=== PATIENT | male | born 1935 | race Caucasian/White ===

== ENCOUNTER 2020-01-26 15:45 | Outpatient (REF) | payer SELFPAY | END 2020-01-26 15:46 | disposition home or self-care (01) | LOC: HO.HAP 15:45 | PROVIDERS: PCP Family Medicine; Referring Provider Family Medicine; Visit Provider Family Medicine | DX: Z13.89 Encounter for screening for other disorder (principal) | CPT/HCPCS: 92700 ==

== ENCOUNTER 2020-02-23 13:58 | Outpatient (REF) | payer SELFPAY | END 2020-02-23 13:59 | disposition home or self-care (01) | LOC: HO.HAP 13:58 | PROVIDERS: PCP Family Medicine; Referring Provider Family Medicine; Visit Provider Family Medicine | DX: Z46.1 Encounter for fitting and adjustment of hearing aid (principal); H90.3 Sensorineural hearing loss, bilateral | CPT/HCPCS: V5266 ==

== ENCOUNTER 2020-03-13 14:04 | Outpatient (REF) | payer SELFPAY | END 2020-03-13 14:05 | disposition home or self-care (01) | LOC: HO.HAP 14:04 | PROVIDERS: Visit Provider Family Medicine | DX: Z46.1 Encounter for fitting and adjustment of hearing aid (principal) | CPT/HCPCS: V5255 ==

== ENCOUNTER 2020-03-28 15:03 | Outpatient (REF) | payer SELFPAY | END 2020-03-28 15:04 | disposition home or self-care (01) | LOC: HO.HAP 15:03 | PROVIDERS: Visit Provider Family Medicine | DX: Z13.89 Encounter for screening for other disorder (principal) ==

== ENCOUNTER 2020-04-11 15:09 | Outpatient (REF) | payer SELFPAY | END 2020-04-11 15:10 | disposition home or self-care (01) | LOC: HO.HAP 15:09 | PROVIDERS: Visit Provider Family Medicine | DX: Z46.1 Encounter for fitting and adjustment of hearing aid (principal); H90.3 Sensorineural hearing loss, bilateral | CPT/HCPCS: V5267 ==

== ENCOUNTER 2020-04-18 13:27 | Outpatient (REF) | payer SELFPAY | END 2020-04-18 13:28 | disposition home or self-care (01) | LOC: HO.HAP 13:27 | PROVIDERS: Visit Provider Family Medicine | DX: Z46.1 Encounter for fitting and adjustment of hearing aid (principal); H90.3 Sensorineural hearing loss, bilateral | CPT/HCPCS: V5266; V5267 ==

== ENCOUNTER 2020-05-09 16:53 | Outpatient (REF) | payer SELFPAY | END 2020-05-09 16:54 | disposition home or self-care (01) | LOC: HO.HAP 16:53 | PROVIDERS: Visit Provider Family Medicine | DX: Z46.1 Encounter for fitting and adjustment of hearing aid (principal) | CPT/HCPCS: V5267 ==

== ENCOUNTER 2020-07-23 14:01 | Outpatient (REF) | payer MEDICARE, OTHER, SELFPAY ==
--- NOTE | 2020-07-23 15:12 | MHC.AU.AHA ---
Adult Audiological Evaluation Date of Visit: 07/23/20 Reason for Appointment: Audiological evaluation to monitor the status of Mr. Allen's hearing loss. He has a longstanding history of hearing loss and hearing aid use. He denies any significant changes to his hearing or medical history. 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 Ear History: Recent Ear Infections: Both Ears Previous Ear Surgery: PE tube in left ear Medical History: Medical History: Unremarkable Medical History Hearing Instrument History- Right Ear: Yard Driver: Phonak Model: Phonak Jaschao M70-10 NW Serial Number: [id number] Battery Size: 10 Repair Warranty: 04/02/2023 Loss and Damage Warranty: 04/02/2023 Dispensed By: [facility] Date of Fittin03/13/2020 Hearing Instrument History- Left Ear: Yard Driver: Phonak Model: [employer] B70-SP Serial Number: [id number] Battery Size: 13 Warranty: 04/07/2020 Loss and Damage Warranty: Dispensed By: [facility] Date of Fittin01/14/2017 Otoscopy: Right Ear: Unremarkable Left Ear: PE tube visualized and appears to be in-tact Tympanometry: Tympanometry performed due to: History of middle ear dysfunction Right Ear: Negative Middle Ear Pressure (Type C), Hypercompliant Middle Ear System (Type Ad) Left Ear: Non-compliant Middle Ear System (Type B), Patent PE Tube Hearing Evaluation: Transducer(s) Used: Insert Earphones, Bone Conduction Method: Conventional Audiometry Stimuli Used: Pure Tones Right Ear: Description of Hearing: Moderate sloping to profound sensorineural hearing loss from 250-8000 Hz. Left Ear: Description of Hearing: Moderate sloping to profound sensorineural hearing loss from 250-8000 Hz. Speech Recognition Threshold (SRT): Method Used: Monitored Live Voice Stimuli Used: Spondee Words Right Ear: 45 dBHL Left Ear: 50 dBHL Word Discrimination: Method: Recorded Lists Word Lists Used: NU-6 Right Ear: 80% at 80 dBHL Left Ear: 76% at 85 dBHL Comparison: Compared to the most recent evaluation: Thresholds have decreased bilaterally. Word discrimination scores have decreased bilaterally. Recommendations: Audiological re-evaluation in one year. Mr. Allen is interested in purchasing a new hearing aid for the left ear to match the current aid in the right ear. Aid is being ordered and Mr. Allen will be contacted to schedule a hearing aid fitting when all materials arrive. Diagnosis: Primary Diagnosis: H90.3 Bilateral Sensorineural Hearing Loss Secondary Diagnosis: H69.93 Unspecified Eustachian Tube Dysfunction, Bilateral Services Performed: Comprehensive Audiological Evaluation (CPT 50875) Tympanometry (CPT 20710) Signature: Provider: Micheal Bob, CCC-A
--- NOTE | 2020-07-23 16:21 | MHC.AU.MED ---
Medical Clearance for Hearing Instrumentation Date: 07/26/20 Patient Name: Mark Allen Date of : 1935 Referring Provider: Jm Benson MD We have seen your patient on 07/26/20 and have determined that they are a candidate for amplification (See accompanying report). Specifically, they would benefit from: Hearing aid use in both ears There is a statute that addresses Medical Evaluation Requirements prior to fitting a patient with a hearing aid. According to [place] statute 265 CMR:6.03(1), (a) General. Except as provided in 265 CMR 6.03(1)(b), a workers' compensation hearings officer shall not sell a hearing aid unless the prospective user has presented to the workers' compensation hearings officer a written statement signed by a licensed physician that states that the patient's hearing loss has been medically evaluated and the patient may be considered a candidate for a hearing aid. The medical evaluation must have taken place within the preceding six months. Please note: Due to the [place] Statute referenced above, we cannot accept a signature other than that of a licensed physician. MEDICARE NURSE and PA signatures cannot be accepted. I am in agreement with the above recommendation. There is no medical contraindication for hearing instrumentation. Physician Signature Date Physician Name (Printed)
== END 2020-07-23 14:02 | disposition home or self-care (01) ==
LOC: HO.SH 14:01
PROVIDERS: Visit Provider Family Medicine
DX: H90.3 Sensorineural hearing loss, bilateral (principal); H69.93 Unspecified Eustachian tube disorder, bilateral
CPT/HCPCS: 92557; 92567

== ENCOUNTER 2020-07-23 14:59 | Outpatient (REF) | payer SELFPAY | END 2020-07-23 15:00 | disposition home or self-care (01) | LOC: HO.SH 14:59 | PROVIDERS: Visit Provider Family Medicine | DX: Z46.1 Encounter for fitting and adjustment of hearing aid (principal); H90.3 Sensorineural hearing loss, bilateral; H69.93 Unspecified Eustachian tube disorder, bilateral | CPT/HCPCS: 92591 ==

== ENCOUNTER 2020-08-16 10:32 | Outpatient (REF) | payer SELFPAY | END 2020-08-16 10:33 | disposition home or self-care (01) | LOC: HO.HAP 10:32 | PROVIDERS: Visit Provider Family Medicine | DX: Z46.1 Encounter for fitting and adjustment of hearing aid (principal); H90.3 Sensorineural hearing loss, bilateral | CPT/HCPCS: V5255 ==

== ENCOUNTER 2020-11-15 13:55 | Outpatient (REF) | payer SELFPAY | END 2020-11-15 13:56 | disposition home or self-care (01) | LOC: HO.HAP 13:55 | PROVIDERS: Visit Provider Family Medicine | DX: Z46.1 Encounter for fitting and adjustment of hearing aid (principal); H90.3 Sensorineural hearing loss, bilateral | CPT/HCPCS: V5266; V5267 ==

== ENCOUNTER 2020-12-21 12:27 | Outpatient (REF) | payer SELFPAY | END 2020-12-21 12:28 | disposition home or self-care (01) | LOC: HO.HAP 12:27 | PROVIDERS: Visit Provider Family Medicine | DX: Z13.89 Encounter for screening for other disorder (principal) ==

== ENCOUNTER 2021-01-28 13:02 | Outpatient (REF) | payer SELFPAY ==
--- NOTE | 2021-01-28 13:21 | MHC.AU.P13 ---
Hearing Instrument Problem Date of Visit: 01/28/21 Right Ear: Ceiling Insulation Blower: Phonak Model: Phonak Virto M70-10 NW Serial Number: [id number] Repair Warranty: 04/02/2023 Loss and Damage Warranty: 04/02/2023 Service Plan: Battery Size: 10 Color: Fleetwood Type of Wax Guard: Cerustop Dispensed By: [facility] Date of Fittin03/13/2020 Left Ear: Ceiling Insulation Blower: Phonak Model: Virto M70-10 NW Serial Number: [id number] Repair Warranty: 09/06/2023 Loss and Damage Warranty: 09/06/2023 Service Plan: Battery Size: 10 Color: Fleetwood Compounder Flavorings: Power Tubing: size 2 slim tube Type of Dome: large power dome Type of Wax Guard: Cerustop Dispensed By: [facility] Date of Fittin08/16/2020 Follow-Up Summary: Patient brought in right Phonak Virto with broken battery door. Battery door replaced, hearing aid cleaned, and wax guard replaced - amplifying clearly and battery door functioning properly. Recommendations: Recommendations: Hearing instrument follow-up or maintenance as needed. Diagnosis Code(s): Primary Diagnosis: H90.3 Bilateral Sensorineural Hearing Loss Signature: Provider: RENUKA Ventura-HIS
== END 2021-01-28 13:03 | disposition home or self-care (01) ==
LOC: HO.HAP 13:02
PROVIDERS: Visit Provider Family Medicine
DX: Z13.89 Encounter for screening for other disorder (principal)

== ENCOUNTER 2021-02-11 15:23 | Outpatient (REF) | payer SELFPAY | END 2021-02-11 15:24 | disposition home or self-care (01) | LOC: HO.HAP 15:23 | PROVIDERS: Visit Provider Family Medicine | DX: Z46.1 Encounter for fitting and adjustment of hearing aid (principal); H90.3 Sensorineural hearing loss, bilateral | CPT/HCPCS: V5266 ==

== ENCOUNTER 2021-05-14 15:31 | Outpatient (REF) | payer SELFPAY | END 2021-05-14 15:32 | disposition home or self-care (01) | LOC: HO.HAP 15:31 | PROVIDERS: Visit Provider Family Medicine | DX: Z46.1 Encounter for fitting and adjustment of hearing aid (principal) | CPT/HCPCS: V5266 ==

== ENCOUNTER 2021-06-14 13:42 | Outpatient (REF) | payer SELFPAY | END 2021-06-14 13:43 | disposition home or self-care (01) | LOC: HO.HAP 13:42 | PROVIDERS: Visit Provider Family Medicine | DX: Z13.89 Encounter for screening for other disorder (principal) ==

== ENCOUNTER 2021-06-25 13:20 | Outpatient (REF) | payer SELFPAY | END 2021-06-25 13:21 | disposition home or self-care (01) | LOC: HO.HAP 13:20 | PROVIDERS: Visit Provider Family Medicine | DX: Z13.89 Encounter for screening for other disorder (principal) ==

== ENCOUNTER 2021-11-01 12:59 | Outpatient (REF) | payer MEDICARE, OTHER, SELFPAY ==
--- NOTE | 2021-11-14 08:43 | MHC.AU.AHA ---
Adult Audiological Evaluation Date of Visit: 11/01/21 Supervisor Paper Products Used: Not Applicable Reason for Appointment: Audiologic re-evaluation to determine possible change in hearing ability. Mark has a history of bilateral hearing loss with history of middle ear fluid with placement of pressure equalization tubes. Mark reports speech understanding in noisy environments continue to be a problem. Previous Hearing Test Results: 07/23/2020 [facility] Bilateral moderate sloping to profound sensorineural hearing loss with 80% speech understanding for the right ear at 8- dB HL and 76% for the left ear at 85 dB HL. Ear History: History of Ear Wax Buildup: Both Ears Previous Ear Surgery: PE tube in left ear Medical History: Medical History: Unremarkable Medical History Hearing Instrument History- Right Ear: Word Processing Operator: Phonak Model: Vid[employer]o M70-10 NW Serial Number: [id number] Battery Size: 10 Repair Warranty: 04/02/2023 Loss and Damage Warranty: 04/02/2023 Dispensed By: [facility] Date of Fittin03/13/2020 Hearing Instrument History- Left Ear: Word Processing Operator: Phonak Model: trueEXo M70-10 NW Serial Number: [id number] Battery Size: 10 Warranty: 09/06/2023 Loss and Damage Warranty: 09/06/2023 Service Plan: Dispensed By: [facility] Date of Fittin08/16/2020 Otoscopy: Right Ear: Partially occluded with cerumen Left Ear: Mostly occluding cerumen. Unable to visualize PE Tube Tympanometry: Tympanometry performed due to: To assess state of PE tubes Right Ear: Hypercompliant Middle Ear System (Type Ad) Left Ear: Patent PE Tube Hearing Evaluation: Transducer(s) Used: Circumaural Headphones Method: Conventional Audiometry Stimuli Used: Pure Tones Right Ear: Description of Hearing: Moderate sloping to profound sensorineural hearing loss Left Ear: Description of Hearing: Moderate sloping to profound sensorineural hearing loss Speech Recognition Threshold (SRT): Method Used: Recorded Lists Stimuli Used: Spondee Words Right Ear: 40 dB HL Left Ear: 40 dB HL Word Discrimination: Method: Recorded Lists Word Lists Used: NU-6 Right Ear: 92% at 80 dB HL Left Ear: 60% at 80 dB HL Comparison: Compared to the most recent evaluation: Thresholds have decreased bilaterally. Compared to most recent evaluation: The partially to mostly occluding cerumen may be influencing the decreased thresholds and speech understanding difficulties. Recommendations: Follow-up with physician for cerumen removal. Hearing aid maintenance performed today. Unable to re-program hearing aids to today's audiologic results due to equipment problem. Mark will schedule another appointment to program aids following cerumen removal. Audiological re-evaluation in one year. Will send a reminder card. Diagnosis: Primary Diagnosis: H90.3 Bilateral Sensorineural Hearing Loss Secondary Diagnosis: H69.92 Unspecified Eustachian Tube Dysfunction, Left Ear Services Performed: Pure Tone- Air (CPT 23963) Speech Audiometry Threshold, with Speech Recognition (CPT 23014) Tympanometry (CPT 69901) Signature: Provider: Micheal Brown, CCC-A
== END 2021-11-01 13:00 | disposition home or self-care (01) ==
LOC: HO.SH 12:59
PROVIDERS: Visit Provider Family Medicine
DX: Z01.118 Encounter for examination of ears and hearing with other abnormal findings (principal); H90.3 Sensorineural hearing loss, bilateral; H69.92 Unspecified Eustachian tube disorder, left ear
CPT/HCPCS: 92552; 92556; 92567

== ENCOUNTER 2021-11-01 14:00 | Outpatient (REF) | payer SELFPAY | END 2021-11-01 14:01 | disposition home or self-care (01) | LOC: HO.HAP 14:00 | PROVIDERS: Visit Provider Family Medicine | DX: Z46.1 Encounter for fitting and adjustment of hearing aid (principal); H90.3 Sensorineural hearing loss, bilateral | CPT/HCPCS: V5266 ==

== ENCOUNTER 2022-03-21 12:25 | Outpatient (REF) | payer SELFPAY | END 2022-03-21 12:26 | disposition home or self-care (01) | LOC: HO.HAP 12:25 | PROVIDERS: Visit Provider Family Medicine | DX: Z46.1 Encounter for fitting and adjustment of hearing aid (principal); H90.3 Sensorineural hearing loss, bilateral | CPT/HCPCS: V5266; V5267 ==

== ENCOUNTER 2022-12-17 16:22 | Outpatient (REF) | payer SELFPAY | END 2022-12-17 16:23 | disposition home or self-care (01) | LOC: HO.HAP 16:22 | PROVIDERS: Visit Provider Family Medicine | DX: Z46.1 Encounter for fitting and adjustment of hearing aid (principal) | CPT/HCPCS: V5266 ==

== ENCOUNTER 2023-03-24 14:57 | Outpatient (REF) | payer SELFPAY | END 2023-03-24 14:58 | disposition home or self-care (01) | LOC: HO.HAP 14:57 | PROVIDERS: Visit Provider Family Medicine | DX: Z13.89 Encounter for screening for other disorder (principal) ==

== ENCOUNTER 2023-03-25 15:10 | Outpatient (REF) | payer SELFPAY | END 2023-03-25 15:11 | disposition home or self-care (01) | LOC: HO.HAP 15:10 | PROVIDERS: Visit Provider Family Medicine | DX: Z13.89 Encounter for screening for other disorder (principal) ==

== ENCOUNTER 2023-04-01 13:55 | Outpatient (REF) | payer SELFPAY | END 2023-04-01 13:56 | disposition home or self-care (01) | LOC: HO.HAP 13:55 | PROVIDERS: Visit Provider Family Medicine | DX: Z13.89 Encounter for screening for other disorder (principal) ==

== ENCOUNTER 2023-05-15 10:30 | Outpatient (REF) | payer MEDICARE, OTHER, SELFPAY | END 2023-05-15 10:31 | disposition home or self-care (01) | LOC: HO.SH 10:30 | PROVIDERS: Visit Provider Family Medicine | DX: Z01.118 Encounter for examination of ears and hearing with other abnormal findings (principal); H90.3 Sensorineural hearing loss, bilateral | CPT/HCPCS: 92557; 92567 ==

== ENCOUNTER 2023-05-15 11:40 | Outpatient (REF) | payer SELFPAY | END 2023-05-15 11:41 | disposition home or self-care (01) | LOC: HO.HAP 11:40 | PROVIDERS: Visit Provider Family Medicine | DX: Z46.1 Encounter for fitting and adjustment of hearing aid (principal); H90.3 Sensorineural hearing loss, bilateral | CPT/HCPCS: V5266 ==

== ENCOUNTER 2023-05-15 11:49 | Outpatient (REF) | payer SELFPAY ==
--- NOTE | 2023-05-15 13:03 | MHC.AU.HA1 ---
Hearing Aid Evaluation Date of Visit: 05/15/23 Historical Information: Description of Hearing: Moderate sloping to profound sensorineural hearing loss, bilaterally Current personal amplification information: Phonak Virto M70-10 NW CICs Summary: Mark is a long-time hearing aid user and he is reportedly ready to pursue new hearing aids. He would prefer to stay with the same CIC style and size 10 battery. Discussed new custom options including Phonak Virto Ps and Oticon OWNs. Discussed options for bluetooth in bigger sized custom; however, Mark does not know what bluetooth is and has no interest in that technology. Also discussed option of waiting to pursue new hearing aids until Phonak releases custom devices with newer technology, possibly on Lumity platform, as current pair is only three years old . However, Mark would like new hearing aids and opted to trial Oticon custom hearing aids, as OWN is in their newest line of technology. Impressions taken, bilaterally, without incident - Sent to Oticon. Hearing Aid Prescription: Based on the individual?s shared listening needs, communication environments, dexterity, desire for connectivity, and personal preferences, the following prescription for amplification has been made: Right ear: Make, Model, Color: Oticon OWN 2 CICs Color: Beige Battery Size: 10 Left ear: Left ear prescription to be same as Right Hearing Aid above: No: Not purchasing one for the left ear at this time. Make, Model, Color: Oticon OWN 2 CICs Color: Beige Battery Size: 10 Plan of Care: Patient wishes to purchase hearing aids as prescribed Action Taken/Action Needed: Hearing Instrument Fitting to be scheduled when materials arrive Primary Diagnosis: H90.3 Bilateral Sensorineural Hearing Loss Signature: Provider: Ronak Simmons, [facility]
== END 2023-05-15 11:50 | disposition home or self-care (01) ==
LOC: HO.HAP 11:49
PROVIDERS: Visit Provider Family Medicine
DX: Z46.1 Encounter for fitting and adjustment of hearing aid (principal); H90.3 Sensorineural hearing loss, bilateral
CPT/HCPCS: 92590

== ENCOUNTER 2023-05-28 12:50 | Outpatient (REF) | payer SELFPAY | END 2023-05-28 12:51 | disposition home or self-care (01) | LOC: HO.HAP 12:50 | PROVIDERS: Visit Provider Family Medicine | DX: Z13.89 Encounter for screening for other disorder (principal) ==

== ENCOUNTER 2023-06-11 12:56 | Outpatient (REF) | payer SELFPAY | END 2023-06-11 12:57 | disposition home or self-care (01) | LOC: HO.HAP 12:56 | PROVIDERS: Visit Provider Nurse Practitioner Family | DX: Z46.1 Encounter for fitting and adjustment of hearing aid (principal); H90.3 Sensorineural hearing loss, bilateral | CPT/HCPCS: 92700; V5259; V5267 ==

== ENCOUNTER 2023-06-25 13:57 | Outpatient (REF) | payer SELFPAY | END 2023-06-25 13:58 | disposition home or self-care (01) | LOC: HO.HAP 13:57 | PROVIDERS: Visit Provider Family Medicine | DX: Z13.89 Encounter for screening for other disorder (principal) ==

== ENCOUNTER 2023-08-18 15:06 | Outpatient (REF) | payer SELFPAY | END 2023-08-18 15:07 | disposition home or self-care (01) | LOC: HO.HAP 15:06 | PROVIDERS: Visit Provider Family Medicine | DX: Z46.1 Encounter for fitting and adjustment of hearing aid (principal); H90.3 Sensorineural hearing loss, bilateral | CPT/HCPCS: V5266 ==

== ENCOUNTER 2023-10-09 15:42 | Outpatient (REF) | payer SELFPAY | END 2023-10-09 15:43 | disposition home or self-care (01) | LOC: HO.HAP 15:42 | PROVIDERS: Visit Provider Family Medicine | DX: Z46.1 Encounter for fitting and adjustment of hearing aid (principal); H90.3 Sensorineural hearing loss, bilateral; H69.92 Unspecified Eustachian tube disorder, left ear | CPT/HCPCS: V5266 ==

== ENCOUNTER 2023-12-02 15:06 | Outpatient (REF) | payer SELFPAY | END 2023-12-02 15:07 | disposition home or self-care (01) | LOC: HO.HAP 15:06 | PROVIDERS: Visit Provider Family Medicine | DX: Z46.1 Encounter for fitting and adjustment of hearing aid (principal); H90.3 Sensorineural hearing loss, bilateral; H69.92 Unspecified Eustachian tube disorder, left ear | CPT/HCPCS: V5266 ==

== ENCOUNTER 2024-02-02 15:01 | Outpatient (REF) | payer SELFPAY | END 2024-02-02 15:02 | disposition home or self-care (01) | LOC: HO.HAP 15:01 | PROVIDERS: Visit Provider Family Medicine | DX: Z46.1 Encounter for fitting and adjustment of hearing aid (principal); H90.3 Sensorineural hearing loss, bilateral; H69.92 Unspecified Eustachian tube disorder, left ear | CPT/HCPCS: V5266 ==

== ENCOUNTER 2024-04-18 14:31 | Outpatient (REF) | payer SELFPAY ==
--- OUTSIDE RECORDS SUMMARY | 2024-04-18 18:56 | XMS_ITS | Data Portability ---
Author Organization [place] [facility] Address [address] [place] [address] Care Team Providers Care Operations Welder Name Role Phone SIMONE NATH Primary Care Provider Assessment Encounter Date Assessment Date Assessment LastModified by Organization Details LastModified Time 12/07/2023 12/07/2023 Impacted cerumen was debrided bilaterally today. The left t-tube is in place and patent. He will follow up in three months. [email or web address] Not available 12/07/2023 15:43:07 03/07/2024 03/07/2024 Impacted cerumen was debrided bilaterally today. The left t-tube is in place and patent. He will follow up in three months. [email or web address] Not available 03/07/2024 14:08:13 Plan of Treatment Reminders Order Date Submit Date Provider Last Modified By Organization Details Last Modified Time Details Appointments Establish ed 15 2024 02:15P Saad WILL PA-C Not available Not available Not available Lab None recorded. Referral None recorded. Procedures None recorded. Surgeries None recorded. Imaging None recorded. Medication Orders None recorded. Patient TargetsNo targets recorded. Patient InstructionsNo instructions recorded. Reason for Referral None Reported. Results Created Date Observation Date Name Description Value Unit Range Abnormal Flag Note LastModifiedBy Organization Detail LastModifiedTime 11/10/19 24 05/17/2019 audio gram No observ ation record ed. Not Available 20:15:38 11/10/1912/28/2019 imagi ng/di agnos tic resul t No observ ation record ed. Not Available 20:15:46 11/10/19 24 05/17/2019 audio gram No observ ation record ed. Not Available 20:16:13 11/10/19 24 12/28/2019 audio gram No observ ation record ed. Not Available 20:16:32 11/10/19 24 01/19/2020 audio gram No observ ation record ed. Not Available 20:16:50 11/10/19 24 01/31/2020 audio gram No observ ation record ed. Not Available 20:16:52 Result Notes None recorded. Problems Name Problem SNOMED Code Status Onset Date Resolution Date Notes Provider Name and Address Organization Details Recorded Time Disorder of left Eustachia n tube 89353894264 65784 Active 2015 Other specified disorders of Eustachia n tube, left ear; Note: Date Diagnosed : 07/06/2015 2:16 PM (H69.82) Not Available [facility] 4 02:14:49 Chronic mycotic otitis externa 991488458 Active 2015 Chronic mycotic otitis externa; Note: Date Diagnosed : 01/30/2016 1:33 PM (380.15) Not Available [facility] 4 02:14:54 Otorrhea of left ear 53442965281 84913 Active 2018 Otorrhea, left ear; Note: Date Diagnosed : 05/04/2018 1:29 PM (H92.12) Otorrhe a, left ear; Note: Date Diagnosed : 5 1:44 PM (H92.12) ; Start Date : 5 Not Available [facility] 4 02:14:13 Impacted cerumen of bilateral ears 53462599134 87763 Active 2014 Impacted cerumen, bilateral ; Note: Date Diagnosed : 5 2:29 PM (H61.23) Not Available [facility] 4 02:14:40 Dysfuncti on of eustachia n tube 52843577 Active 2013 Eustachia n tube dysfuncti on; Note: Date Diagnosed : 02/24/2014 2:07 PM (381.81) Not Available [facility] 4 02:12:51 Sensorine ural hearing loss of bilateral ears 018130420 Active 2019 Sensorine ural hearing loss, bilateral ; Note: Date Diagnosed : 05/17/2019 1:53 PM (H90.3) Not Available [facility] 4 02:15:19 Mixed conductiv e and sensorine ural hearing loss, bilateral 470180364 Active 2013 Mixed HL, bilateral ; Note: Date Diagnosed : 02/24/2014 1:34 PM (389.22) Not Available [facility] 4 02:15:53 Infective otitis externa of left ear 20897907952 15069 Active 2015 Other infective otitis externa, left ear; Note: Date Diagnosed : 02/27/2016 2:38 PM (H60.392) Not Available [facility] 4 02:14:54 Impacted cerumen in right ear 43308123625 82135 Active 2016 Impacted cerumen, right ear; Note: Date Diagnosed : 10/14/2016 1:43 PM (H61.21) Not Available [facility] 4 02:13:33 Itching of skin 857421410 Active 2022 Other pruritus; Note: Date Diagnosed : 11/11/2022 3:09 PM (L29.8) Not Available [facility] 4 02:14:26 Problem Notes None recorded. Procedures Surgical History None recorded. Imaging Results Imaging Date Name Status LastModified by [facility] Details LastModified Time 05/17/2019 audiogram completed Information not available 11/10/2023 20:15:38 12/28/2019 imaging/diagno stic result completed Information not available 11/10/2023 20:15:46 05/17/2019 audiogram completed Information not available 11/10/2023 20:16:13 12/28/2019 audiogram completed Information not available 11/10/2023 20:16:32 01/19/2020 audiogram completed Information not available 11/10/2023 20:16:50 01/31/2020 audiogram completed Information not available 11/10/2023 20:16:52 Procedure Notes None recorded. Medical Equipment None Reported. Medications Name Sig Start Date Stop Date Status Note LastModified by Organization Details LastModified Time amoxicill in 500 mg capsule TAKE 4 CAPS ONCE ONE HOUR PRIOR TO DENTAL WORK OR CLEANING 03/07 completed Not Available Not Available Not Available ofloxacin 0.3 % eye drops 03/07 completed Medicati on ID: [id number] D uration Value: 10 Prescri bed By Name: BERNIE Grande nd Name: ofloxaci n Send Method: E-Prescr ibed Sub s Allowed: subs OK Speci al Instruct ion: apply 5 drops to left ear BID x 10 days Med icationG enericNa me: ofloxaci n Not Available Not Available Not Available simvastat in 40 mg tablet 07/12 completed Medicati on ID: [id number] Du ration Value: 90 Brand Name: simvasta tin Send Method: E-Prescr ibed Sub s Allowed: subs OK Medic ationGen ericName : simvasta tin Not Available Not Available Not Available pantopraz ole 20 mg tablet,de layed release TAKE 1 TABLET DAILY (REPLACE S ESOMEPRA ZOLE) active Not Available Not Available No t Available ofloxacin 0.3 % ear drops Apply 4 drop into left ear twice a day 03/07 completed Medicati on ID: [id number] D uration Value: 14 Brand Name: ofloxaci n Send Method: E-Prescr ibed Sub s Allowed: subs OK Medic ationGen ericName : ofloxaci n Not Available Not Available Not Available triamcino lone acetonide 0.025 % topical cream 03/07 completed Medicati on ID: [id number] B rand Name: triamcin olone acetonid e Send Method: E-Prescr ibed Sub s Allowed: subs OK Medic ationGen ericName : triamcin olone acetonid e Not Available Not Available Not Available tamsulosi n 0.4 mg capsule 03/07 completed Medicati on ID: [id number] B rand Name: tamsulos in Send Method: E-Prescr ibed Sub s Allowed: subs OK Medic ationGen ericName : tamsulos in Not Available Not Available Not Available flunisoli de 25 mcg (0.025 %) nasal spray 03/07 completed Not Available Not Available Not Available clotrimaz ole-betam ethasone 1 %-0.05 % topical cream PLEASE SEE ATTACHED FOR DETAILED DIRECTIO NS 03/07 completed Not Available Not Available Not Available lansopraz ole 30 mg capsule,d elayed release 03/07 completed Not Available Not Available Not Available lisinopri l 5 mg tablet 07/12 completed Medicati on ID: [id number] D uration Value: 90 Brand Name: lisinopr il Send Method: E-Prescr ibed Sub s Allowed: subs OK Medic ationGen ericName : lisinopr il Not Available Not Available Not Available fluticaso ne propionat e 50 mcg/actua tion nasal spray,[place] USE 1 SPRAY IN EACH NOSTRIL TWICE A DAY active Not Available Not Available No t Available naproxen 500 mg tablet 08/07 completed Medicati on ID: [id number] Du ration Value: 30 Reason: () Brand Name: naproxen Send Method: E-Prescr ibed Sub s Allowed: subs OK Speci al Instruct ion: TAKE 1 TABLET BY MOUTH TWICE A DAY AFTER MEALS Me dication GenericN nakul: naproxen Not Available Not Available Not Available esomepraz ole magnesium 20 mg capsule,d elayed release 03/07 completed Medicati on ID: [id number] B rand Name: esomepra zole magnesiu m Send Method: E-Prescr ibed Sub s Allowed: subs OK Medic ationGen ericName : esomepra zole magnesiu m Not Available Not Available Not Available TobraDex 0.3 %-0.1 % eye drops,[place] 4 drop 03/07 completed Medicati on ID: [id number] D uration Value: 7 Prescri bed By Name: BERNIE Lowe nd Name: TobraDex Send Method: E-Prescr ibed Sub s Allowed: subs OK Speci al Instruct ion: apply to left ear. sit with drops in ear x 5 minutes. no water in ear. Med icationG enericNa me: TobraDex Not Available Not Available Not Available Ciprodex 0.3 %-0.1 % ear drops,[place] 4 drop 03/07 completed Medicati on ID: [id number] D uration Value: 14 Prescri bed By Name: BERNIE Garcia nd Name: Ciprodex Send Method: E-Prescr ibed Sub s Allowed: subs OK Medic ationGen ericName : Ciprodex Not Available Not Available Not Available rosuvasta tin 20 mg tablet TAKE 1 TABLET BY MOUTH EVERY DAY active Not Available Not Available No t Available hydrochlo rothiazid e 12.5 mg tablet 07/08 completed Medicati on ID: [id number] Re ason: () Brand Name: hydrochl orothiaz karon Send Method: E-Prescr ibed Sub s Allowed: subs OK Medic ationGen ericName : hydrochl orothiaz karon Not Available Not Available Not Available Vitals Date Recorded Body height Body mass index (BMI) Body weight Provider Name and Address Organization Details Last Updated DateTime 12/07/2023 172.72 cm 30.1 kg/m2 34553.29 g Hillary Menard [place] [facility] 12/07/2023 13:44:57 Date Recorded Body height Body mass index (BMI) Body weight Provider Name and Address Organization Details Last Updated DateTime 03/07/2024 172.72 cm 30.1 kg/m2 84060.29 g Destiny Bonilla [place] [facility] 03/07/2024 13:38:20 Social History None recorded. Functional Status None recorded. Mental Status None recorded. Family History Nothing Reported. Medical History No medical history recorded. Past Encounters Encounter ID Performer Location Encounter Start Date Encounter Closed Date Diagnosis/Indication Diagnosis SNOMED-CT Code Diagnosis ICD10 Code Diagnosis Note [id number] LAUREN JIMENEZ PA-C [facility] [id number] [place] [address] 12/07/2023 13:35:57 12/07/2023 13:54:32 Disorder of left Eustachian tube 0147764902 531516 H69.82 Impacted c erumen of bilateral ears 3464398945 381486 H61.23 [id number] LAUREN JIMENEZ PA-C [facility] on [address] [place] [address] 03/07/2024 13:32:10 03/07/2024 14:14:39 Disorder of left Eustachian tube 9352752120 647846 H69.82 Impacted c erumen of bilateral ears 9889741693 177105 H61.23 Health Concerns Section Related Observation LastModified by Organization Detai ls LastModified Time None Recorded Concern Status LastModified by Organization Details LastModified Time None Recorded Advance Directives Directive None Recorded Payers Encounter Date Sequence Insurance Name Policy Number Policy Marcos Covered Member ID Marcos Member ID Guarantor Name 12/07/2023 2 [facility] [id number] Mark Allen [id number] Mark Allen 12/07/2023 1 MEDICARE [facility]: NATIONAL [employer]MENT SERVICES Mark Allen [id number] Mark Blanclivan 03/07/2024 2 [facility] [id number] Mark Blanclivan [id number] Mark Blanclivan 03/07/2024 1 MEDIC[place]: [facility] SERVICES Mark Blanclivan [id number] Mark Solorio Allen Notes Date Note Type Note Provider Name and Address Organization Details Recorded Time 12/07/2023 text/html 88 year old male presents today for ear cleaning and tube check. History of left t-tube placed by .No concerns today. He recently underwent an aortic valve replacement and has been doing very well. LAUREN JIMENEZ PA-C [address] [place] [address], [address], [place] - [facility] 12/07/2023 15:43:19 03/07/2024 text/html 88 year old male presents today for ear cleaning and tube check. History of left t-tube placed by .He reports a little itching in the left ear. He has been using OTC hydrocortisone which has been helping. LAUREN JIMENEZ PA-C [address] [place] [address], [place], [address], [facility] - [facility] 03/07/2024 14:08:53
--- OUTSIDE RECORDS SUMMARY | 2024-04-18 18:56 | XMS_ITS | Patient Health Record ---
Author Organization [facility] Address [address] [place] [address] Care Team Providers Care Nursing Resident Name Role Phone Jm Benson MD Primary Care Provider Ana Delaney Unavailable [phone] Dhaval Rosario Unavailable [phone] Loco Monroy Unavailable [phone] Allergies Allergen (clinical drug ingredient) Drug/Non Drug Allergy documented on EMR Reaction Allergy Type Onset Date Status Seasonale Unknown Drug Allergy Active Reason For Referral No Information Medications Medication SIG (Take, Route, Frequency, Duration) Notes Start Date End Date Status Rosuvastatin Calcium 20 MG 1 tablet Oral ly Once a day Active Simvastatin 40 MG 1 tablet in the evening Orally Not-Taking hydroCHLOROthiazide 12.5 MG 1 tablet Orally Not-Taking Tamsulosin HCl 0.4 MG 1 capsule Orally Once a day Not-Taking Esomeprazole Magnesium 20 MG Orally Once a day Not-Taking Baby Aspirin Active AmLactin 12 % 1 application to affected area Externally Twice a day to feet for 30 days Active Fluorouracil twice a day on face Not-Taking Fluticasone Propionate (Inhal) 50 MCG/BLIST Inhalation Active Advil Not-Taking Tobramycin-dexAMETHasone Not-Taking Colcrys 0.6 MG 1 tablet Orally once a day for 30 days for gout 08/06/2020 Not-Taking Antibiotic Temp 10days Not-Ejremy ing Lansoprazole 30 MG 1 capsule before a meal Orally Once a day Not-Taking Lisinopril 5 MG 1 tablet Orally Once a day for 30 day(s) Not-Taking Pantoprazole Sodium 20 MG Oral for 90 Active Lansoprazole 30 MG Orally N ot-Taking Immunizations Vaccine Route Administration Date Status Comme nts COVID-19 Moderna Vaccine Unknown 01/21/2022 Administered 05/01/2020,05/29/2020,2021 Influenza Unknown 12/21/2021 Administered Social History Tobacco Use: Social History Observation Description Date Details (start date - stop date) Former Smoker NA - NA Tobacco Use/Smoking Question Answer Notes Are you a: former smoker Additional Findings: Tobacco Non-User Current no n-smoker Alcohol Screen Question Answer Notes Did you have a drink contain ing alcohol in the past year? Yes How often did you have a dri nk containing alcohol in the past year? 2 to 4 times a month (2 points) Points 2 Interpretation Negative Tobacco use other than smoking: Question Answer Notes Are you an other tobacco user? No Problems Problem Type SNOMED Code ICD Code Onset Dates Problem Status W/U Status Risk Notes Problem Tinea unguium (501563414) Tinea unguium (B35.1) Active confirmed Problem Unspecified atherosclerosis of [place] arteries of extremities, bilateral legs (I70.203) Active confirmed Problem Localized, primary osteoarthritis of the ankle and/or foot (401645386) Primary osteoarthritis, left ankle and foot (M19.072) Active confirmed Problem Acquired hammer toe of right foot (3424773399316232 ) Other hammer toe(s) (acquired), right foot (M20.41) Active confirmed Problem Acquired hammer toe of left foot (7599494431943687 ) Other hammer toe(s) (acquired), left foot (M20.42) Active confirmed Problem Primary gout (31622514) Idiopathic gout, 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) Active confirmed Problem Primary gout (34635197) Idiopathic gout, 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) Active confirmed Problem 683218274 Venous insufficiency of both lower extremities (I87.2) Active confirmed Problem Atherosclerosis of united [place] artery of both lower extremities, with unspecified presence of clinical manifestation (I70.203) Active confirmed Q7(A), Q8(2B), Q9(1B,2 C) Vital Signs Blood pressure diastolic 78 mm Hg 01/27/2024 Height 5 ft 9 in in 01/27/2024 Blood pressure systolic 160 mm Hg 01/27/2024 Weight 180 lbs 01/27/2024 BMI 26.58 kg/m2 01/27/2024 Procedures Procedure Date Ordered Date Performed Result Body Sit e 52360-HQNFGBU NAIL, 6 OR MORE 01/27/2024 N/A 16551-JDOW SKIN LESIONS, 2 TO 4 01/27/2024 N/A Encounters Encounter Location Date Provider Diagnosis [address] [address] 07/02/2023 Dhaval Rosario Tinea unguium B35.1 ; Pain in right toe(s) M79.674 ; Pain in left toe(s) M79.675 ; Plantar fascial fibromatosis M72.2 ; Primary osteoarthritis, left ankle and foot M19.072 ; Unspecified atherosclerosis of [place] arteries of extremities, bilateral legs I70.203 ; Xerosis cutis L85.3 and Idiopathic gout, multiple sites M10.[address] [address] 10/28/2023 Dhaval Rosario Tinea unguium B35.1 ; Pain in right toe(s) M79.674 ; Pain in left toe(s) M79.675 ; Plantar fascial fibromatosis M72.2 ; Primary osteoarthritis, left ankle and foot M19.072 ; Unspecified atherosclerosis of [place] arteries of extremities, bilateral legs I70.203 ; Xerosis cutis L85.3 and Idiopathic gout, multiple sites M10.[address] [address] 01/27/2024 [place] Atherosclerosis of united [place] artery of both lower extremities, with unspecified presence of clinical manifestation I70.203 ; Tinea unguium B35.1 ; Pain in right toe(s) M79.674 and Pain in left toe(s) M79.[address] [address] 07/07/2023 Dhaval Rosario [address] [address] 10/06/2023 Dhaval Rosario Assessments Encounter Date Diagnosis (ICD Code) Assessment Notes Treatment Notes Treatment Clinical Notes Section Notes 07/02/2023 Tinea unguium (ICD-10 - B35.1) 10/28/2023 Tinea unguium (ICD-10 - B35.1) 01/27/2024 Tinea unguium (ICD-10 - B35.1) 01/27/2024 Atherosclerosis of united [place] artery of both lower extremities, with unspecified presence of clinical manifestation (ICD-10 - I70.203) Q7(A), Q8(2B), Q9(1B,2C) 01/27/2024 Pain in right toe(s) (ICD-10 - M79.674) 10/28/2023 Pain in right toe(s) (ICD-10 - M79.674) 07/02/2023 Pain in right toe(s) (ICD-10 - M79.674) 07/02/2023 Pain in left toe(s) (ICD-10 - M79.675) 10/28/2023 Pain in left toe(s) (ICD-10 - M79.675) 01/27/2024 Pain in left toe(s) (ICD-10 - M79.675) 10/28/2023 Plantar fascial fibromatosis (ICD-10 - M72.2) 07/02/2023 Plantar fascial fibromatosis (ICD-10 - M72.2) 10/28/2023 Primary osteoarthritis, left ankle and foot (ICD-10 - M19.072) 07/02/2023 Primary osteoarthritis, left ankle and foot (ICD-10 - M19.072) 07/02/2023 Unspecified atherosclerosis of [place] arteries of extremities, bilateral legs (ICD-10 - I70.203) 10/28/2023 Unspecified atherosclerosis of [place] arteries of extremities, bilateral legs (ICD-10 - I70.203) 07/02/2023 Xerosis cutis (ICD-10 - L85.3) 10/28/2023 Xerosis cutis (ICD-10 - L85.3) 07/02/2023 Idiopathic gout, multiple sites (ICD-10 - M10.09) 10/28/2023 Idiopathic gout, multiple sites (ICD-10 - M10.09) Plan Of Treatment Pending Test Test Name Order Date X ray : Ankle, left 3V 08/06/2020 *Uric Acid, Serum 08/06/2020 *Sedimentation Rate-Westergren 07283-IXHFIZP NAIL, 6 OR MORE 01/27/2024 82621-BIZDIQI NAIL, 6 OR MORE 04/09/2016 34038-IOVPBKL NAIL, 6 OR MORE 07/17/2016 50279-LLJCMIQ NAIL, 6 OR MORE 10/29/2016 52873-JEVAECY NAIL, 6 OR MORE 01/28/2017 20382-ZFNLWEA NAIL, 6 OR MORE 04/29/2017 31394-WSMAUWX NAIL, 6 OR MORE 08/05/2017 15074-PJHRQKX NAIL, 6 OR MORE 11/04/2017 70194-JVJVMYU NAIL, 6 OR MORE 02/03/2018 13196-WFQZSVV NAIL, 6 OR MORE 10/28/2012 69562-IRYVLYX NAIL, 6 OR MORE 01/13/2013 28979-HZZUGRX NAIL, 6 OR MORE 04/20/2013 79580-FLUBYBG NAIL, 6 OR MORE 07/06/2013 14349-VBEOTQQ NAIL, 6 OR MORE 09/28/2013 37813-AMGLEJF NAIL, 6 OR MORE 12/29/2013 63191-QQRYKPX NAIL, 6 OR MORE 03/30/2014 57269-IAKTUEK NAIL, 6 OR MORE 06/29/2014 45391-XXDMJUB NAIL, 6 OR MORE 09/28/2014 39428-JXOUTXF NAIL, 6 OR MORE 12/28/2014 01775-SOSVBKC NAIL, 6 OR MORE 04/04/2015 25500-STDWDFL NAIL, 6 OR MORE 07/04/2015 71718-QDGQOFD NAIL, 6 OR MORE 10/04/2015 77655-UXVUUQA NAIL, 6 OR MORE 01/03/2016 30019-Zmtbxuyf Plate 02/06/2016 04607-Quozjngi Plate 06/29/2014 19026-Ppznozgp Plate 02/03/2018 01623- Debride <25 sq cm 02/21/2016 62524-IDFL SKIN LESIONS, 2 TO 4 02/06/20 20 75834-DIHY SKIN LESIONS, 2 TO 4 05/10/19 21 57574-EZUM SKIN LESIONS, 2 TO 4 01/27/20 24 68537-VSCW SKIN LESIONS, 2 TO 4 08/07/19 21 23070-ARTH SKIN LESIONS, 2 TO 4 11/22/19 21 23444-BGEX SKIN LESIONS, 2 TO 4 02/21/20 19550-QWOE SKIN LESIONS, 2 TO 4 06/11/19 22 05730-QTOPHNMS OF HEMATOMA/FLUID 018 Next Appt Details Provider Name:Ana ibrahim, 04/27/2024 12:45:00 PM, [address] [facility], [place], [address], Insurance Providers Payer Name Payer Address Payer Phone Subscriber Number Group Number Insured Name Patient Relationship to Insured Coverage Start Date Coverage End Date Medicare National Govt Sv[employer] [address] [place] [address] [id number] Mark Allen Self - patient is the insured 3 [employer] [address] [place] [address] [phone] [id number] Mark Allen Self - patient is the insured Medical (General) History Medical History History ICD Code skin cancer reflux measles mumps chicken pox Surgical History Surgery Date(Month/Year) hernia tubal ligation skin cancer removed from ear 2012 colonoscopy 06/23/2013 cyst on head removed 01/02/2017 Left Cataract surgery 07/20/2017 Right Cataract surgery 07/27/2017 2 skin cancers removed from face 02/2018 tooth extraction 09/2018 skin cancer 04/19/20,08/2020 catheter urinary 3x 10/2021,11/2021 prostate surgery 02/10/22 Skin Biopsy 2023 heart valve- 09/2023 Hospitalization History Reason Date(Month/Year) [facility] ER -Prostate issues sameda y 2x 2021
--- OUTSIDE RECORDS SUMMARY | 2024-04-18 18:56 | XMS_ITS ---
Author Organization [facility] Address [address] [place] [address] Care Team Providers Care Batter Mixer Name Role Phone Jm Benson MD Primary Care Provider Ana Delaney Unavailable [phone] Dhaval Rosario [phone] Encounters Encounter Location Date Provider Diagnosis [address] [address] 10/15/2023 Dhaval Rosario Plan Of Treatment Next Appt Details Provider Name:Ana Fidel ibrahim, 04/27/2024 12:45:00 PM, [address] [place] [address], [address], Progress Notes * Mark ALLENDOB:1934 (89 yo M)Acc No.[id number]:10/15/2023 Progress Note Patient:?Mark ALLEN Provider:?Dhaval Rosario DPM :1935???Age:88 Y???Sex:Male Del e:10/15/2023 Address:[address] [place] [address] [facility] [id number] Pcp:Jm Benson MD Subjective: * Chief Complaints: * ??? * Medical History:? Objective: * Vitals:? Assessment: Plan: * Treatment: * Images: * The named appointment provid er may or may not be the originator of this progress note, and it is not deemed complete until electronically signed by the appointment provider. Sign off status: Pending * Provider:Michael Rosario DPM Date:? 024 Generated for Sujata alvarado/Azael/Ying on:?04/18/2024 06:55 PM EST
--- OUTSIDE RECORDS SUMMARY | 2024-04-18 18:56 | XMS_ITS ---
Author Organization [facility] Address [address] [place] [address] Care Team Providers Care Insurance Marketing Specialist Name Role Phone Jm Benson MD Primary Care Provider Ana Delaney Unavailable [phone] Allergies Allergen (clinical drug ingredient) Drug/Non Drug Allergy documented on EMR Reaction Allergy Type Onset Date Status Seasonale Unknown Drug Allergy Active REASON FOR VISIT At Risk Footcare, Painful Nail(s) aggravated by shoes and causing difficulty standing/walking. Medications Medication SIG (Take, Route, Frequency, Duration) Notes Start Date End Date Status Simvastatin 40 MG 1 tablet in the evening Orally Not-Taking hydroCHLOROthiazide 12.5 MG 1 tablet Orally Not-Taking Tamsulosin HCl 0.4 MG 1 capsule Orally Once a day Not-Taking Fluorouracil twice a day on face Not-Taking Tobramycin-dexAMETHasone Not-Taking Esomeprazole Magnesium 20 MG Orally Once a day Not-Taking Colcrys 0.6 MG 1 tablet Orally once a day for 30 days for gout 08/06/2020 Not-Taking Antibiotic Temp 10days Not-Jeremy ing Lansoprazole 30 MG 1 capsule before a meal Orally Once a day Not-Taking Pantoprazole Sodium 20 MG Oral for 90 Active Rosuvastatin Calcium 20 MG 1 tablet Oral ly Once a day Active Baby Aspirin Active AmLactin 12 % 1 application to affected area Externally Twice a day to feet for 30 days Active Fluticasone Propionate (Inhal) 50 MCG/BLIST Inhalation Active Lisinopril 5 MG 1 tablet Orally Once a day for 30 day(s) Not-Taking Advil Not-Taking Lansoprazole 30 MG Orally N ot-Taking Social History Tobacco Use: Social History Observation [...] Problem Status W/U Status Risk Notes Problem Atherosclerosis of [place] artery of both lower extremities, with unspecified presence of clinical manifestation (I70.203) Active confirmed Q7(A), Q8(2B), Q9(1B,2C) Vital Signs Blood pressure systolic 160 mm Hg 01/27/20 24 Blood pressure diastolic 78 mm Hg 024 Height 5 ft 9 in in 01/27/2024 Weight 180 lbs 01/27/2024 BMI 26.58 kg/m2 01/27/2024 Procedures Procedure Date Ordered Date Performed Result Body Sit e 96531-JGLCMBH NAIL, 6 OR MORE 01/27/2024 N/A 28855-TRBG SKIN LESIONS, 2 TO 4 01/27/2024 N/A Encounters Encounter Location Date Provider Diagnosis [facility] [address] [address] 01/27/2024 Ana Bay Atherosclerosis of [place] artery of both lower extremities, with unspecified presence of clinical manifestation I70.203 ; Tinea unguium B35.1 ; Pain in right toe(s) M79.674 and Pain in left toe(s) M79.675 Assessments Encounter Date Diagnosis (ICD Code) Assessment Notes Treatment Notes Treatment Clinical Notes Section Notes 01/27/2024 Atherosclerosis of [place] artery of both lower extremities, with unspecified presence of clinical manifestation (ICD-10 - I70.203) Q7(A), Q8(2B), Q9(1B,2C) 01/27/2024 Tinea unguium (ICD-10 - B35.1) 01/27/2024 Pain in right toe(s) (ICD-10 - M79.674) 01/27/2024 Pain in left toe(s) (ICD-10 - M79.675) Plan Of Treatment Pending Test Test Name Order Date 66077-PSNKKGQ NAIL, 6 OR MORE 01/27/2024 45202-MJUR SKIN LESIONS, 2 TO 4 01/27/20 24 Next Appt Details Follow Up: 3 Months, Reason: Provider Name:Ana Fidel ibrahim, 04/27/2024 12:45:00 PM, [address] [place], [address], Procedure Notes * Category Sub-Category Detail Notes Debride Nail 6-10 Nail debridement Performance o f this nail treatment by a nonprofessional would put this patients foot and overall health at risk. Therefore, debridement to affected nail(s) as described in exam was performed extensively to reduce/remove overall nail length, girth, thickness, subungual debris, and necrotic tissue, by manual and/or electrical means through the use of a nail nipper and/or dremel-type grinder and plater, to a more viable healthy nail plate or bed tissue 6-10. Silver nitrate used for any petechial bleeding as necessary. Definitive antifungal treatment options have been reviewed and discussed with the patient. The patient chooses, no pharmaceutical tx - 99273 Keratoma Treatment Parring or Cutting o f Benign Hyperkeratotic Lesion(s) (-56) 2-4 Lesions - The Benign hyperkeratotic lesions, as described in exam, were pared, and/or cut utilizing a sterile 15 blade, tissue nippers, and/or dremel - 48437, Q8 Progress Notes * Mark ALLENDOB:1934 (89 yo M)Acc No.[id number]:01/27/2024 Progress Note Patient:?Mark Allen Provider:?Ana Bay DPM :1935???Age:89 Y???Sex:Male Del e:01/27/2024 Address:[address] [place] [address] [place] Pcp:Jm Benson MD Subjective: * Chief Complaints: * ???At Risk FootcarePainful N ail(s) aggravated by shoes and causing difficulty standing/walking. * HPI: ???At Risk footcare:?Pt States Last PCP Visit:?Date?12/22/2023 * ROS:?General/Constitutional:?Nausea?denies.?Vomiting?denies.?Hunger Thirst?denies.?Loss appetite?denies.?Chills?denies.?Fatigue?denies.?Fever?denies.?Night Sweats?denies.?Unexplained weight loss?denies.?Ophthalmologic:?Blurred vision?denies.?Red eye?denies.?HEENTM:?Dentures?denies.?Dizziness?denies.?Glasses/contacts?denies.?Retinopathy?de nies.?Blurred/double vision?denies.?TMJ?denies.?Discharge/drainage?denies.?Implants?denies.?Hard of hearing denies.?Difficulty chewing/swallowing/speaking?denies.?Nose bleeds?denies.?Sore mouth?denies.?Swollen glands?denies.?Respiratory:?On Oxygen?denies.?Pneumonia/pleurisy?denies.?Bronchitis?denies.?Emphysema?denies.?C oughing?denies.?Cough blood?denies.?Shortness of breath?denies.?Wheezing?denies.?Cardiovascular:?Pacemaker?denies.?MVP?denies.?WPW?denies.?CHF?denies.?Heart attack?denies.?Septal defect?denies.?Rapid beat?denies.?Chest pain ?denies.?Atrial Fib.?denies.?Murmur/Palpitations?denies.?Gastrointestinal:?Hemorrhoids?denies.?Stomach/Abdominal pain?denies.?Dark blood stool?denies.?Irritable bowel ?denies.?Constipation?denies.?Diarrhea?denies.?Vomiting?denies.?Hematology:?Swelling?denies.?Bruising?denies.?Bleeding problem?denies.?Genitourinary:?Blood urine?denies.?Frequent/Painfu/urination/bladder control?denies.?Kidney stones?denies.?Infection (UTI)?denies.?Nephropathy?denies.?Musculoskeletal:?Hammertoes?admits.?Bunions?denies.?Scoliosis/kyphosis?denies.?Muscle cramps / walking?denies.?Generalized aches and pains?denies.?Weakness?denies.?Integ.:?Naylor?denies.?Scars?denies.?Corns/calluses?admits.?Ingrown nails?denies.?Painful nails?admits.?Rashes?denies.?Neurologic:?Difficulty sleeping?denies.?Bipolar?denies.?Brain disorder?denies.?Balance trouble?denies.?Confusion?denies.?Fainting/blackouts?denies.?Headache?denies.?Tr emors?denies.? * Medical History:? * Surgical History:?hernia tub al ligation skin cancer removed from ear 2013colonoscopy 06/23/2013cyst on head removed 01/02/2017Left Cataract surgery 07/20/2017Right Cataract surgery skin cancers removed from face 02/2018tooth extraction 09/2018skin cancer 04/19/20,atheter urinary 3x 10/2021,rostate surgery 02/10/22Skin Biopsy 2023heart valve- 09/2023 * Hospitalization/Major Diagno stic Procedure:? [facility] ER -Prostate issues sameday 2021 * Family History:?Mother: dece ased.?Father: , diagnosed with Diabetic - NIDDM.?Siblings: cancer.? * Social History:?Tobacco Use:?Tobacco Use/Smoking?Are you a:?former smoker ?Additional Findings: Tobacco Non-User?Current non-smoker ?Tobacco use other than smoking?Are you an other tobacco user??No ???Drugs/Alcohol:?Drugs?Have you used drugs other than those for medical reasons in the past 12 months??No ?Alcohol Screen?Did you have a drink containing alcohol in the past year??Yes ?How often did you have a drink containing alcohol in the past year??2 to 4 times a month (2 points) ?Points?2 ?Interpretation?Negative ???Miscellaneous:?Caffeine: yes, frequency:, 3-5 cups per day. ?Children: yes. ?no Exercise. ?Marital status: . 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 * Medications:?TakingRosuvasta tin Calcium 20 MG Tablet 1 tablet Orally Once a dayAmLactin 12 % Lotion 1 application to affected area Externally Twice a day to feetBaby Aspirin Fluticasone Propionate (Inhal) 50 MCG/BLIST Aerosol Powder Breath Activated Inhalation Pantoprazole Sodium 20 MG Tablet Delayed Release Oral Taking Rosuvastatin Calcium 20 MG Tablet 1 tablet Orally Once a dayTaking AmLactin 12 % Lotion 1 application to affected area Externally Twice a day to feetTaking Baby Aspirin Taking Fluticasone Propionate (Inhal) 50 MCG/BLIST Aerosol Powder Breath Activated Inhalation Taking Pantoprazole Sodium 20 MG Tablet Delayed Release Oral Not-Taking/PRNLansoprazole 30 MG Capsule Delayed Release 1 capsule before a meal Orally Once a dayAntibiotic , Notes: Temp 10daysColcrys 0.6 MG Tablet 1 tablet Orally once a day, Notes: for goutEsomeprazole Magnesium 20 MG Capsule Delayed Release Orally Once a dayTamsulosin HCl 0.4 MG Capsule 1 capsule Orally Once a dayhydroCHLOROthiazide 12.5 MG Capsule 1 tablet Orally Simvastatin 40 MG Tablet 1 tablet in the evening Orally Fluorouracil twice a day on faceTobramycin- dexAMETHasone Advil Lansoprazole 30 MG Capsule Delayed Release Orally Lisinopril 5 MG Tablet 1 tablet Orally Once a dayMedication List reviewed and reconciled with the patientNot-Taking/PRN Lansoprazole 30 MG Capsule Delayed Release 1 capsule before a meal Orally Once a dayNot-Taking/PRN Antibiotic , Notes: Temp 10daysNot- Taking/PRN Colcrys 0.6 MG Tablet 1 tablet Orally once a day, Notes: for goutNot-Taking/PRN Esomeprazole Magnesium 20 MG Capsule Delayed Release Orally Once a dayNot- Taking/PRN Tamsulosin HCl 0.4 MG Capsule 1 capsule Orally Once a dayNot-Taking/PRN hydroCHLOROthiazide 12.5 MG Capsule 1 tablet Orally Not-Taking/PRN Simvastatin 40 MG Tablet 1 tablet in the evening Orally Not-Taking/PRN Fluorouracil twice a day on faceNot-Taking/PRN Tobramycin-dexAMETHasone Not-Taking/PRN Advil Not-Taking/PRN Lansoprazole 30 MG Capsule Delayed Release Orally Not-Taking/PRN Lisinopril 5 MG Tablet 1 tablet Orally Once a dayMedication List reviewed and reconciled with the patient * Allergies:?Seasonaleyes[Elliott rgies Verified] Objective: * Vitals:?Ht: 5 ft 9 in, Wt:18 0, BMI: 26.58, Shoe size:12, BP:160/78 mm Hg, Wt-k.65 kg. * Examination: ???Vascular: ?DP PULSES(B):? 0/4, B/L.?PT PULSES(B):?1/4, B/L.?CAPILLARY FILL TIME:? delayed, all digits, B/L.?TROPHIC CONDITION-TEXTURE/ELASTICITY/TURGOR/HAIR GROWTH(B):?decreased, fragile, thin, shiny skin, with sparse to absent hair growth, B/L.?TEMPERTURE GRADIENT(C):? decreased, cool to cool, proximal to distal, B/L.?PIGMENTATION:?rubrous, B/L.?EDEMA(C):?1/4, pitting, without aching pain, Leg(s), Ankle(s) B/L.?CLAUDICATION(C):?denies, B/L.?REST PAIN:?denies, B/L.?PARESTHESIA(C):?absent, B/L.?BURNING(C):?absent, B/L.?Nails: ?NAILS are:?Elongated, overgrown, dystrophic, lytic, greater than 3mm thick, discolored and friable with crumbly malodorous subungual debris, with pain on palpation 1-5 B/L.?Dermatologic: ?SKIN FINDINGS:?Skin exam reveals Keratotic lesion(s) located at? sub 1st metatarsal head B/L, heels B/L.?Orthopedic: ?MUSCLE STRENGTH:?5/5 all groups in a symmetrical fashion, B/L , 5/5 all groups in a symmetrical fashion , B/L.?FOOT MORPHOLOGY:? Pes Planus structure, B/L.?DIGITAL DEFORMITIES:? Digital contracture, PIPJ, 2-5 B/L, incompl- reducable to push-up test, no over, nor underlapping.?Neurological: ?SENSORY:?Neurological exam reveals intact sensorium, pain sensation normal, vibration sensation intact, pinprick sensation is normal in the lower extremities, Pt denies, anesthesia, burning, paresthesia, tingling, B/L , Neurological exam reveals intact sensorium, pain sensation normal, vibration sensation intact, pinprick sensation is normal in the lower extremities, Pt denies, anesthesia, burning, paresthesia, tingling, B/L.?General Examination: ?GENERAL APPEARANCE:?Reveals a pleasant, alert, well nourished, well- developed, well hydrated individual, who demonstrates proper attention to hygiene/body habitus, and is in no acute distress, Pt serves as own historian for office visit today.?ORIENTED:?person, place, and time.? Assessment: * Assessment: 1.?Tinea unguium - B35.1?2.? Atherosclerosis of [place] artery of both lower extremities, with unspecified presence of clinical manifestation - I70.203, Q7(A), Q8(2B), Q9(1B,2C)?3.?Pain in right toe(s) - M79.674?4.?Pain in left toe(s) - M79.675? Plan: * Treatment: 2.?Atherosclerosis of [place] artery of both lower extremities, with unspecified presence of clinical manifestation?Procedure: 70912-DXAU SKIN LESIONS, 2 TO 4 * Procedures:?Debride Nail 6-10:?Nail debridement?Performance of this nail treatment by a nonprofessional would put this patients foot and overall health at risk. Therefore, debridement to affected nail(s) as described in exam was performed extensively to reduce/remove overall nail length, girth, thickness, subungual debris, and necrotic tissue, by manual and/or electrical means through the use of a nail nipper and/or dremel-type grinder and plater, to a more viable healthy nail plate or bed tissue 6-10. Silver nitrate used for any petechial bleeding as necessary. Definitive antifungal treatment options have been reviewed and discussed with the patient. The patient chooses, no pharmaceutical tx - 68860.?Keratoma Treatment:?Parring or Cutting of Benign Hyperkeratotic Lesion(s)?(-56) 2-4 Lesions - The Benign hyperkeratotic lesions, as described in exam, were pared, and/or cut utilizing a sterile 15 blade, tissue nippers, and/or dremel - 69188, Q8.? * Procedure Codes:?35175 DEBRI DE NAIL, 6 OR MORE, Modifiers: XS 71990 TRIM SKIN LESIONS, 2 TO 4, Modifiers: XS , Q8 * Follow Up:?3 Months * Images: * Sign off status: Completed true * Provider:?Ana Bay DPM Date:?1 03/28/2023 Generated for Sujata alvarado/Azael/Ying on:?04/18/2024 06:55 PM EST History and Physical Notes * HPI (History of Present Illness) Category Sub-Category Detail Notes Category Not es At Risk footcare Pt States Last PCP Visit: Date: Examination Category Sub-Category Detail Notes Category Not es Neurological SENSORY: Neurological exa m reveals intact sensorium, pain sensation normal, vibration sensation intact, pinprick sensation is normal in the lower extremities, Pt denies, anesthesia, burning, paresthesia, tingling, B/L , Neurological exam reveals intact sensorium, pain sensation normal, vibration sensation intact, pinprick sensation is normal in the lower extremities, Pt denies, anesthesia, burning, paresthesia, tingling, B/L Dermatologic SKIN FINDINGS: Skin exam reveal s Keratotic lesion(s) located at sub 1st metatarsal head B/L, heels B/L Orthopedic FOOT MORPHOLOGY: Pes Planus structure, B/ L DIGITAL DEFORMITIES: Digital contracture , PIPJ, 2-5 B/L, incompl-reducable to push-up test, no over, nor underlapping MUSCLE STRENGTH: 5/5 all groups in a symmetrical fashion, B/L , 5/5 all groups in a symmetrical fashion , B/L General Examination GENERAL APPEARANCE: Reveals a pleasant, alert, well nourished, well-developed, well hydrated individual, who demonstrates proper attention to hygiene/body habitus, and is in no acute distress, Pt serves as own historian for office visit today ORIENTED: person, place, and t fan Vascular DP PULSES (B): 0/4, B/L PT PULSES (B): 1/4, B/L CAPILLARY FILL TIME: delayed, all digits , B/L TEMPERTURE GRADIENT (C): decreased, cool to cool, proximal to distal, B/L TROPHIC CONDITION-TEXTURE/ELASTICITY/TURGOR/HAIR GROWTH (B): decreased, fragile, thin, shiny skin, wi th sparse to absent hair growth, B/L EDEMA (C): 1/4, pitting, withou t aching pain, Leg(s), Ankle(s) B/L CLAUDICATION (C): denies, B/L REST PAIN: denies, B/L PIGMENTATION: rubrous, B/L PARESTHESIA (C): absent, B/L BURNING (C): absent, B/L Nails NAILS are: Elongated, overg rown, dystrophic, lytic, greater than 3mm thick, discolored and friable with crumbly malodorous subungual debris, with pain on palpation 1-5 B/L
--- OUTSIDE RECORDS SUMMARY | 2024-04-18 18:56 | XMS_ITS ---
Author Organization [facility] Address [address] [place] [address] Care Team Providers Care Forgeman Helper Name Role Phone Jm Benson MD Primary Care Provider Ana Delaney Unavailable [phone] Dhaval Rosario Unavailable [phone] Allergies Allergen (clinical drug ingredient) Drug/Non Drug Allergy documented on EMR Reaction Allergy Type Onset Date Status Seasonale Unknown Drug Allergy Active REASON FOR VISIT Painful nail(s) aggrevated by shoes and causing difficulty standing/walking. Medications Medication SIG (Take, Route, Frequency, Duration) Notes Start Date End Date Status Antibiotic Temp 10days Not-Jeremy ing Colcrys 0.6 MG 1 tablet Orally once a day for 30 days for gout 08/06/2020 Not-Taking Esomeprazole Magnesium 20 MG Orally Once a day Not-Taking Tamsulosin HCl 0.4 MG 1 capsule Orally Once a day Not-Taking Lansoprazole 30 MG 1 capsule before a meal Orally Once a day Not-Taking Lisinopril 5 MG 1 tablet Orally Once a day for 30 day(s) Not-Taking AmLactin 12 % 1 application to affected area Externally Twice a day to feet for 30 days Active Baby Aspirin Active Fluticasone Propionate (Inhal) 50 MCG/BLIST Inhalation Active Pantoprazole Sodium 20 MG Oral for 90 Active Simvastatin 40 MG 1 tablet in the evening Orally Not-Taking Fluorouracil twice a day on face Not-Taking Tobramycin-dexAMETHasone Not-Taking Advil Not-Taking Lansoprazole 30 MG Orally N ot-Taking hydroCHLOROthiazide 12.5 MG 1 tablet Orally Not-Taking Social History Tobacco Use: Social History Observation [...] Are you an other tobacco user? No Vital Signs Blood pressure systolic 160 mm Hg 10/28/19 24 Blood pressure diastolic 78 mm Hg 024 Height 5 ft 9 in in 10/28/2023 Weight 180 lbs 10/28/2023 BMI 26.58 kg/m2 10/28/2023 Encounters Encounter Location Date Provider Diagnosis [facility] [address] [place] [address] 10/28/2023 Dhaval Rosario Tinea unguium B35.1 ; Pain in right toe(s) M79.674 ; Pain in left toe(s) M79.675 ; Plantar fascial fibromatosis M72.2 ; Primary osteoarthritis, left ankle and foot M19.072 ; Unspecified atherosclerosis of [place] arteries of extremities, bilateral legs I70.203 ; Xerosis cutis L85.3 and Idiopathic gout, multiple sites M10.09 Assessments Encounter Date Diagnosis (ICD Code) Assessment Notes Treatment Notes Treatment Clinical Notes Section Notes 10/28/2023 Tinea unguium (ICD-10 - B35.1) 10/28/2023 Pain in right toe(s) (ICD-10 - M79.674) 10/28/2023 Pain in left toe(s) (ICD-10 - M79.675) 10/28/2023 Plantar fascial fibromatosis (ICD-10 - M72.2) 10/28/2023 Primary osteoarthritis, left ankle and foot (ICD-10 - M19.072) 10/28/2023 Unspecified atherosclerosis of [place] arteries of extremities, bilateral legs (ICD-10 - I70.203) 10/28/2023 Xerosis cutis (ICD-10 - L85.3) 10/28/2023 Idiopathic gout, multiple sites (ICD-10 - M10.09) Plan Of Treatment Medication Medication Name Sig Start Date Stop Date Notes AmLactin 12 % 1 application to aff ected area Externally Twice a day to feet for 30 days Next Appt Details Follow Up: 3 Months, Reason: Provider Name:Ana ibrahim, 04/27/2024 12:45:00 PM, [address] [place] [address], [place], [address], Procedure Notes * Category Sub-Category Detail Notes Debride Nail 6-10 Nail debridement Nail debridem ent performed extensively to reduce/remove overall nail length and girth, subungual debris, and necrotic tissue, by manual and electrical means with use of a nail nipper and/or dremel, to more viable healthy nail plate or bed tissue 6-10. Silver nitrate used for any petechial bleeding as necessary. Patient chooses, no pharmaceutical tx (51481) Keratoma Treatment Parring or Cutting o f Benign Hyperkeratotic Lesion(s) 28833 (2-4 Lesions) - The Benign hyperkeratotic lesions, as described above were pared, and/or cut utilizing a sterile #15 blade, tissue nippers, and/or dremel, Q8 Progress Notes * Mark ALLEN JDOB:1934 (88 yo M)Acc No.[id number]:10/28/2023 Progress Note Patient:?AllenMark augustin Provider:?Dhaval Rosario DPM :1935???Age:88 Y???Sex:Male Del e:10/28/2023 Address:[address] [place], [place] [id number] Pcp:Jm Benson MD Subjective: * Chief Complaints: * ??? Painful nail(s) aggrevat ed by shoes and causing difficulty standing/walking. * HPI: ???Painful Nails:?Pt States Last PCP Visit:?Date:?04/23/2023 ?Misc:?pt had sx on prostrate.?Skin problems:?Nature:?dryness.?Location:?B/L , Heel/Rearfoot, Ankle.?Course:?improved.?Treatments:?medication ( Eucerin).? * ROS:?General/Constitutional:?Nausea?denies.?Vomiting?denies.?Hunger Thirst?denies.?Loss appetite?denies.?Chills?denies.?Fatigue?denies.?Fever?denies.?Night Sweats?denies.?Unexplained weight loss?denies.?Ophthalmologic:?Blurred vision?denies.?Red eye?denies.?HEENTM:?Dentures?denies.?Dizziness?denies.?Glasses/contacts?denies.?Retinopathy?de nies.?Blurred/double vision?denies.?TMJ?denies.?Discharge/drainage?denies.?Implants?denies.?Hard of hearing denies.?Difficulty chewing/swallowing/speaking?denies.?Nose bleeds?denies.?Sore mouth?denies.?Swollen glands?denies.?Respiratory:?On Oxygen?denies.?Pneumonia/pleurisy?denies.?Bronchitis?denies.?Emphysema?denies.?C oughing?denies.?Cough blood?denies.?Shortness of breath?denies.?Wheezing?denies.?Cardiovascular:?Pacemaker?denies.?MVP?denies.?WPW?denies.?CHF?denies.?Heart attack?denies.?Septal defect?denies.?Rapid beat?denies.?Chest pain ?denies.?Atrial Fib.?denies.?Murmur/Palpitations?denies.?Gastrointestinal:?Hemorrhoids?denies.?Stomach/Abdominal pain?denies.?Dark blood stool?denies.?Irritable bowel ?denies.?Constipation?denies.?Diarrhea?denies.?Vomiting?denies.?Hematology:?Swelling?denies.?Bruising?denies.?Bleeding problem?denies.?Genitourinary:?Blood urine?denies.?Frequent/Painfu/urination/bladder control?denies.?Kidney stones?denies.?Infection (UTI)?denies.?Nephropathy?denies.?Musculoskeletal:?Hammertoes?admits.?Bunions?denies.?Scoliosis/kyphosis?denies.?Muscle cramps / walking?denies.?Generalized aches and pains?denies.?Weakness?denies.?Integ.:?Naylor?denies.?Scars?denies.?Corns/calluses?admits.?Ingrown nails?denies.?Painful nails?denies.?Rashes?denies.?Neurologic:?Difficulty sleeping?denies.?Bipolar?denies.?Brain disorder?denies.?Balance trouble?denies.?Confusion?denies.?Fainting/blackouts?denies.?Headache?denies.?Tr emors?denies.? * Medical History:? * Surgical History:?hernia tub al ligation skin cancer removed from ear 2013colonoscopy 06/23/2013cyst on head removed 01/02/2017Left Cataract surgery 07/20/2017Right Cataract surgery skin cancers removed from face 02/2018tooth extraction 09/2018skin cancer 04/19/20,atheter urinary 3x 10/2021,rostate surgery 02/10/22Skin Biopsy 2023 heart valve- 09/2023 * Hospitalization/Major Diagno stic Procedure:? [facility] ER -Prostate issues sameday 2021 [...] helping them go back to work. * Medications:?TakingBaby Aspi rin AmLactin 12 % Lotion 1 application to affected area Externally Twice a day to feetFluticasone Propionate (Inhal) 50 MCG/BLIST Aerosol Powder Breath Activated Inhalation Pantoprazole Sodium 20 MG Tablet Delayed Release Oral Taking Baby Aspirin Taking AmLactin 12 % Lotion 1 application to affected area Externally Twice a day to feetTaking Fluticasone Propionate (Inhal) 50 MCG/BLIST Aerosol Powder [...] evening Orally Fluorouracil twice a day on faceTobramycin-dexAMETHasone Advil Lansoprazole 30 MG Capsule Delayed Release Orally Lisinopril 5 MG Tablet 1 tablet Orally Once a dayMedication List reviewed and reconciled with the patientNot-Taking/PRN Lansoprazole 30 MG Capsule Delayed Release 1 capsule before a meal Orally Once a dayNot-Taking/PRN Antibiotic , Notes: Temp 10daysNot-Taking/PRN Colcrys 0.6 MG Tablet 1 tablet Orally once a day, Notes: for goutNot-Taking/PRN Esomeprazole Magnesium 20 MG Capsule Delayed Release Orally Once a dayNot-Taking/PRN Tamsulosin HCl 0.4 MG Capsule 1 capsule Orally Once a dayNot-Taking/PRN hydroCHLOROthiazide 12.5 MG Capsule 1 tablet Orally Not- Taking/PRN Simvastatin 40 MG Tablet 1 tablet in the evening Orally Not-Taking/PRN Fluorouracil twice a day on faceNot-Taking/PRN Tobramycin-dexAMETHasone Not-Taking/PRN Advil Not-Taking/PRN Lansoprazole 30 MG Capsule Delayed Release Orally Not-Taking/PRN Lisinopril 5 MG Tablet 1 tablet Orally Once a dayMedication List reviewed and reconciled with the patient * Allergies:?Seasonaleyes[Elliott rgies Verified] Objective: * Vitals:?Ht: 5 ft 9 in, Wt:18 0, BMI:26.58, Shoe size:12, BP:160/78 mm Hg. * Examination: ???Dermatologic: ?SKIN FINDINGS:? Skin exam reveals Keratotic lesion(s) located at, Plantar, T1, T7, T5, IPJ.?Nails: ?NAILS are:?elongated,overgrown,dystrophic,greater than 3mm thick,discolored and friable with crumbly malodorous subungual debris, with pain on palpation, 1-5 B/L.?Vascular: ?DP PULSES:? 0/4, B/L.?PT PULSES:? 1/4, B/L.?VARICOSITIES:? present, moderate, nonpainful, B/L.?Neurological: ?SENSORY:?Neurological exam reveals intact sensorium, pain sensation normal, vibration sensation intact, pinprick sensation is normal in the lower extremities, Pt denies, anesthesia, burning, paresthesia, tingling, B/L.?Orthopedic: ?MUSCLE STRENGTH:?5/5 all groups in a symmetrical fashion , B/L.?FOOT MORPHOLOGY:? Pes Planus structure, B/L.?DIGITAL DEFORMITIES:? Digital contracture, PIPJ, 2-5 B/L, incompl- reducable to push-up test, no over, nor underlapping.? 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 Plan: * Treatment: * Procedures:?Debride Nail 6-10:?Nail debridement?Nail debridement performed extensively to reduce/remove overall nail length and girth, subungual debris, and necrotic tissue, by manual and electrical means with use of a nail nipper and/or dremel, to more viable healthy nail plate or bed tissue 6-10. Silver nitrate used for any petechial bleeding as necessary. Patient chooses, no pharmaceutical tx (77210).?Keratoma Treatment:?Parring or Cutting of Benign Hyperkeratotic Lesion(s)?38343 (2-4 Lesions) - The Benign hyperkeratotic lesions, as described above were pared, and/or cut utilizing a sterile #15 blade, tissue nippers, and/or dremel, Q8.? * Procedure Codes:?24961 DEBRI DE NAIL, 6 OR MORE, Modifiers: XS 53164 TRIM SKIN LESIONS, 2 TO 4, Modifiers: Q8 * Follow Up:?3 Months * Images: * Sign off status: Completed true * Provider:?Dhaval Rosario DPM Date:? 024 Generated for Jajai jenny/Azael/eTransmitting on:?04/18/2024 06:55 PM EST History and Physical Notes * HPI (History of Present Illness) Category Sub-Category Detail Notes Category Not es Painful Nails Misc: pt had sx on prostrate Pt States Last PCP Visit: Date:: 04/23/2023 Skin problems Nature: dryness Location: B/L , Heel/Rearfoot, Ankle Course: improved Treatments: medication ( Eucerin ) Examination Category Sub-Category Detail Notes Category Not es Neurological SENSORY: Neurological exa m reveals intact sensorium, pain sensation normal, vibration sensation intact, pinprick sensation is normal in the lower extremities, Pt denies, anesthesia, burning, paresthesia, tingling, B/L Dermatologic SKIN FINDINGS: Skin exam reveal s Keratotic lesion(s) located at, Plantar, T1, T7, T5, IPJ Orthopedic FOOT MORPHOLOGY: Pes Planus structure, B/ L DIGITAL DEFORMITIES: Digital contracture , PIPJ, 2-5 B/L, incompl-reducable to push-up test, no over, nor underlapping MUSCLE STRENGTH: 5/5 all groups in a symmetrical fashion , B/L Vascular DP PULSES (B): 0/4, B/L PT PULSES (B): 1/4, B/L VARICOSITIES: present, moderate, n onpainful, B/L Nails NAILS are: elongated,overgr own,dystrophic,greater than 3mm thick,discolored and friable with crumbly malodorous subungual debris, with pain on palpation, 1-5 B/L
== END 2024-04-18 14:32 | disposition home or self-care (01) ==
LOC: HO.HAP 14:31
PROVIDERS: Visit Provider Family Medicine
DX: Z46.1 Encounter for fitting and adjustment of hearing aid (principal); H90.3 Sensorineural hearing loss, bilateral; H69.92 Unspecified Eustachian tube disorder, left ear
CPT/HCPCS: V5266; V5267

== ENCOUNTER 2024-09-19 14:27 | Outpatient (REF) | payer SELFPAY ==
--- OUTSIDE RECORDS SUMMARY | 2024-09-19 14:57 | XMS_ITS | Patient Health Record ---
Author Organization [facility] Address [address] [place] [address] Care Team Providers Care Proof Operator Name Role Phone Jeronimo Monk MD Primary Care Provider Simone De La Rosa [phone] Allergies Allergen (clinical drug ingredient) Drug/Non Drug Allergy documented on EMR Reaction Allergy Type Onset Date Status pantoprazole Protonix Unknown Drug Allergy Acti ve Reason For Referral No Information Medications Medication SIG (Take, Route, Frequency, Duration) Notes Start Date End Date Status hydroCHLOROthiazide 12.5mg 1 po qd Active Colyte with Flavor Packs 227 .1 GM As directed Orally As directed for 1 day(s) 02/10/2013 Active Lansoprazole 30mg 1 po qd 03/23/2024 03/23/2024 Active Fluticasone Propionate 50 mcg 2 sprays e ach nostril qd Active Simvastatin 40mg 1/2 po qd Act alejandro Problems Problem Type SNOMED Code ICD Code Onset Dates Problem Status W/U Status Risk Notes 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 Problem Colon cancer screening (970440453) Colon cancer screening (V76.51) Active confirmed Problem History of polyp of colon (079281344) H/O adenomatous polyp of colon (V12.72) Active confirmed Plan Of Treatment Future Test Test Name Order Date UPPER GI ENDOSCOPY 02/10/2013 COLONOSCOPY 02/10/2013 Insurance Providers Payer Name Payer Address Payer Phone Subscriber Number Group Number Insured Name Patient Relationship to Insured Coverage Start Date Coverage End Date [facility]IC[facility] OF [facility] [address] [place] [address] [id number] NANO BELLO Self - patient is the insured [facility] [address] [place] [address] [id number] NANO BELLO Self - patient is the insured Medical (General) History Medical History History ICD Code EGD/Colonoscopy 12/20/2007 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
--- OUTSIDE RECORDS SUMMARY | 2024-09-19 14:57 | XMS_ITS | Data Portability ---
Author Organization [place] - [facility], Allergy Address [address] [address] Care Team Providers Care Surgical Aide Name Role Phone SIMONE NATH Primary Care Provider [phone] Assessment Encounter Date Assessment Date Assessment LastModified by Organization Details LastModified Time 12/07/2023 12/07/2023 Impacted cerumen was debrided bilaterally today. The left t-tube is in place and patent. He will follow up in three months. [email or web address] Not available 12/07/2023 15:43:07 03/07/2024 03/07/2024 Impacted cerumen was debrided bilaterally today. The left t-tube is in place and patent. He will follow up in three months. [email or web address] Not available 03/07/2024 14:08:13 06/10/2024 06/10/2024 Impacted cerumen was debrided bilaterally today. The left t-tube is in place and patent. His left ear exam was consistent with a low level fungal infection. Debris was cleaned out using suction. I have issued him a prescription for a course of Clotrimazole drops to use in the left ear. I have recommended dry ear precautions and that he not use the left hearing aid for the next two weeks. He requests to follow up in 3 months. [email or web address] Not available 06/10/2024 14:31:51 07/13/2024 07/13/2024 Left tube is patent. No otorrhea. Dry debris was removed from left EAC. Advised him to stop all drops. Follow up in August as scheduled for routine ear cleaning. [email or web address] Not available 07/13/2024 13:28:13 Plan of Treatment Reminders Order Date Submit Date Provider Last Modified By Organization Details Last Modified Time Details Appointments Establish ed 10 2024 01:40P M HUMPHREY ZHANG MD Not available Not available Not available Lab None recorded. Referral None recorded. Procedures None recorded. Surgeries None recorded. Imaging None recorded. Medication Orders clotrimaz ole 1 % topical solution 2024 025 [facility]/Pharmacy #[id number], [id number] [place], [id number], 07/13/2024 13:15:40 Patient TargetsNo targets recorded. Patient InstructionsNo instructions recorded. Reason for Referral None Reported. Results Created Date Observation Date Name Description Value Unit Range Abnormal Flag Note LastModifiedBy Organization Detail LastModifiedTime 11/10/19 24 05/17/2019 audio gram No observ ation record ed. Not Available 20:15:38 11/10/19 24 12/28/2019 imagi ng/di agnos tic resul t No [...] Time Disorder of left Eustachia n tube 77791478727 15102 Active 2015 Other specified disorders of Eustachia n tube, left ear; Note: Date Diagnosed : 07/06/2015 2:16 PM (H69.82) Not Available [facility] 02:14:49 Chronic mycotic otitis externa 909234297 Active 2015 Chronic mycotic otitis externa; Note: Date Diagnosed : 01/30/2016 1:33 PM (380.15) Not Available [facility] 4 02:14:54 Otorrhea of left ear 32805188606 71937 Active 2018 Otorrhea, left ear; Note: Date Diagnosed : 05/04/2018 1:29 PM (H92.12) Otorrhe a, left ear; Note: Date Diagnosed : 5 1:44 PM (H92.12) ; Start Date : 5 Not Available [facility] 4 02:14:13 Impacted cerumen of bilateral ears 60609286707 95523 Active 2014 Impacted cerumen, bilateral ; Note: Date Diagnosed : 5 2:29 PM (H61.23) Not Available [facility] 4 02:14:40 Dysfuncti on of eustachia n tube 04700082 Active 2013 Eustachia n tube dysfuncti on; Note: Date Diagnosed : 02/24/2014 2:07 PM (381.81) Not Available [facility] 4 02:12:51 Sensorine ural hearing loss of bilateral ears 057306757 Active 2019 Sensorine ural hearing loss, bilateral ; Note: Date Diagnosed : 05/17/2019 1:53 PM (H90.3) Not Available [facility] 4 02:15:19 Mixed conductiv e and sensorine ural hearing loss, bilateral 645757034 Active 2013 Mixed HL, bilateral ; Note: Date Diagnosed : 02/24/2014 1:34 PM (389.22) Not Available [facility] 4 02:15:53 Infective otitis externa of left ear 13979656137 40110 Active 2015 Other infective otitis externa, left ear; Note: Date Diagnosed : 02/27/2016 2:38 PM (H60.392) Not Available [facility] 4 02:14:54 Impacted cerumen in right ear 71424733129 80289 Active 2016 Impacted cerumen, right ear; Note: Date Diagnosed : 10/14/2016 1:43 PM (H61.21) Not Available [facility] 4 02:13:33 Itching of skin 664731258 Active 2022 Other pruritus; Note: Date Diagnosed : 11/11/2022 3:09 PM (L29.8) Not Available [facility] 4 02:14:26 Problem Notes None recorded. Procedures Surgical History Date Name Laterality Status Provider Name and Address Organization Details Recorded Time 5 Cerumen removal without microscope bilat completed ALEXANDRA WILL PA-C [address] [place] [address],[address], [address], [facility] 06/10/2024 14:29:07 Imaging Results None recorded. Procedure Notes None recorded. Medical Equipment None Reported. Medications Name Sig Start Date Stop Date Status Note LastModified by Organization Details LastModified Time amoxicill in 500 mg capsule TAKE 4 CAPSULES ONCE ONE HOUR PRIOR TO DENTAL WORK OR CLEANING 07/13 completed Not Available Not Available Not Available ofloxacin 0.3 % eye drops 03/07 completed Medicati on ID: [id number] D uration Value: 10 Prescri bed By Name: BERNIE Grande nd Name: ofloxaci n Send Method: E-Prescr ibed Sub s Allowed: subs OK Speci al Instruct ion: apply 5 drops to left ear BID x 10 days Med icationG enericNa me: ofloxaci n Not Available Not Available Not Available simvastat in 40 mg tablet 07/12 completed Medicati on ID: [id number] Du ration Value: 90 Brand Name: simvasta [...] a day 03/07 completed Medicati on ID: [id number] D uration Value: 14 Brand Name: ofloxaci n Send Method: E-Prescr ibed Sub s Allowed: subs OK Medic ationGen ericName : ofloxaci n Not Available Not Available Not Available triamcino lone acetonide 0.025 % topical cream 03/07 completed Medicati on ID: [id number] B rand Name: triamcin olone acetonid e Send Method: E-Prescr ibed Sub s Allowed: subs OK Medic ationGen ericName : triamcin olone acetonid e Not Available Not Available Not Available tamsulosi n 0.4 mg capsule 03/07 completed Medicati on ID: [id number] B rand Name: tamsulos in Send Method: E-Prescr ibed Sub s Allowed: subs OK Medic ationGen ericName : tamsulos in Not Available Not Available Not Available flunisoli de 25 mcg (0.025 %) nasal spray 03/07 completed Not Available Not Available Not Available cephalexi n 500 mg capsule TAKE 1 CAPSULE BY MOUTH EVERY 6 HOURS 10 DAYS 07/13 completed Not Available Not Available Not Available clotrimaz ole-betam ethasone 1 %-0.05 % topical cream PLEASE SEE ATTACHED FOR DETAILED DIRECTIO NS 03/07 completed Not Available Not Available Not Available lansopraz ole 30 mg capsule,d elayed release 03/07 completed Not Available Not Available Not Available clotrimaz ole 1 % topical solution APPLY 4 DROPS TO THE LEFT EAR THREE TIMES DAILY X 2 WEEKS 07/13 completed Not Available Not Available Not Available betametha sone dipropion ate 0.05 % topical cream PLEASE SEE ATTACHED FOR DETAILED DIRECTIO NS active Not Available Not Available No t Available ammonium lactate 12 % topical cream PLEASE SEE ATTACHED FOR DETAILED DIRECTIO NS active Not Available Not Available No t Available lisinopri l 5 mg tablet 07/12 completed Medicati on ID: [id number] D uration Value: 90 Brand Name: lisinopr [...] mg tablet 08/07 completed Medicati on ID: [id number] Du ration Value: 30 Reason: () Brand Name: naproxen Send Method: E-Prescr ibed Sub s Allowed: subs OK Speci al Instruct ion: TAKE 1 TABLET BY MOUTH TWICE A DAY AFTER MEALS Me dication GenericN nakul: naproxen Not Available Not Available Not Available esomepraz ole magnesium 20 mg capsule,d elayed release 03/07 completed Medicati on ID: [id number] B rand Name: esomepra zole magnesiu m Send Method: E-Prescr ibed Sub s Allowed: subs OK Medic ationGen ericName : esomepra zole magnesiu m Not Available Not Available Not Available TobraDex 0.3 %-0.1 % eye drops,[place] pension 4 drop 03/07 completed Medicati on ID: [id number] D uration Value: 7 Prescri bed By [...] 4 drop 03/07 completed Medicati on ID: [id number] D uration Value: 14 Prescri bed By [...] mg tablet 07/08 completed Medicati [place] ID: [id number] Re ason: () Brand Name: hydrochl orothiaz karon Send Method: E-Prescr ibed Sub s Allowed: subs OK Medic ationGen ericName : hydrochl orothiaz karon Not Available Not Available Not Available aspirin 81 mg capsule Take 1 capsule every day by oral route. active Not Available Not Available No t Available Vitals Date Recorded Body height Body mass index (BMI) Body weight Provider Name and Address Organization Details Last Updated DateTime 06/10/2024 172.72 cm 30.1 kg/m2 71623.29 g Nadya Moon [place] - [facility] 06/10/2024 14:11:20 Date Recorded Body height Provider Name an d Address Organization Details Last Updated DateTime 07/13/2024 172.72 cm MARITZA ADAM [place] - [facility] 07/13/2024 13:12:57 Date Recorded Body height Body mass index (BMI) Body weight Provider Name and Address Organization Details Last Updated DateTime 12/07/2023 172.72 cm 30.1 kg/m2 32154.29 g Hillary Menard [place] - [facility] 12/07/2023 13:44:57 Date Recorded Body height Body mass index (BMI) Body weight Provider Name and Address Organization Details Last Updated DateTime 03/07/2024 172.72 cm 30.1 kg/m2 88888.29 g Destiny Bonilla [facility] 03/07/2024 13:38:20 Social History None recorded. Functional Status None recorded. Mental Status None recorded. Family History Nothing Reported. Medical History No medical history recorded. Past Encounters Encounter ID Performer Location Encounter Start Date Encounter Closed Date Diagnosis/Indication Diagnosis SNOMED-CT Code Diagnosis ICD10 Code Diagnosis Note [id number] ZENY JIMENEZ PA-C [facility] on [address] [place] [id number] 12/07/2023 13:35:57 12/07/2023 13:54:32 Disorder of left Eustachian tube 9287576947 587350 H69.82 Impacted c erumen of bilateral ears 1866472074 646561 H61.23 [id number] ZENY JIMENEZ PA-C [facility] on [address] [place] [phone] 03/07/2024 13:32:10 03/07/2024 14:14:39 Disorder of left Eustachian tube 7190853273 639233 H69.82 Impacted c erumen of bilateral ears 7788793785 672078 H61.23 [id number] ALEXANDRA WILL PA-C [facility] on [address] [place] [address] 06/10/2024 14:08:27 06/10/2024 14:28:12 Chronic mycotic otitis externa 424702273 H60.399 Impacted c erumen of bilateral ears 2990620194 764320 H61.23 [id number] ALEXANDRA WILL PA-C [facility] [address] [place] [address] 07/13/2024 13:07:26 07/13/2024 13:26:57 Disorder of left Eustachian tube 2074323971 900868 H69.82 Otorrhea of left ear 993 9430723 233643 H92.12 Health Concerns Section Related Observation LastModified by Organization Detai ls LastModified Time None Recorded Concern Status LastModified by Organization Details LastModified Time None Recorded Advance Directives Directive None Recorded Payers Insurance Date Sequence Insurance Name Policy Number Policy Marcos Covered Member ID Marcos Member ID Guarantor Name 09/10/2024 2 [facility] [id number] Mark Allen [id number] Mark Allen 09/10/2024 1 MEDICARE B-[place]: [facility] Mark Allen [id number] Mark Allen Notes Date Note Type Note Provider Name and Address Organization Details Recorded Time 12/07/2023 text/html 88 year old male presents today for ear cleaning and tube check. History of left t-tube placed by .No concerns today. He recently underwent an aortic valve replacement and has been doing very well. Zeny germain [place] - [facility] 12/07/2023 15:43:19 03/07/2024 text/html 88 year old male presents today for ear cleaning and tube check. History of left t-tube placed by .He reports a little itching in the left ear. He has been using OTC hydrocortisone which has been helping. Zeny germain [place] - [facility] 03/07/2024 14:08:53 06/10/2024 text/html 89 year old male presents for routine three month ear cleaning. He does report bilateral ear itching. He uses hydrocortisone oil as needed. NICK GUEVARA MD [address] [place] [address], [phone], [facility] - [facility] 06/13/2024 08:37:33 07/13/2024 text/html 89 year old male presents for follow up of left otorrhea. He used the Clotrimazole drops for 2-3 days after last office visit then accidentally put too many drops in and had pain. He discontinued the Clotrimazole and treated his otorrhea with Ofloxacin drops that he had at home. No further otorrhea. ZORAN OCONNELL MD [address] [place] [address], [phone], [facility] - [facility] 07/14/2024 13:02:45
--- OUTSIDE RECORDS SUMMARY | 2024-09-19 14:57 | XMS_ITS | Patient Health Record ---
Author Organization [facility] Address [address] [place] [address] Care Team Providers Care Survey Statistician Name Role Phone Jm Benson MD Primary Care Provider Ana Delaney Unavailable [phone] Dhaval Rosario Unavailable [phone] Loco Monroy Unavailable [phone] Allergies Allergen (clinical drug ingredient) Drug/Non Drug Allergy documented on EMR Reaction Allergy Type Onset Date Status Seasonal (uncoded) Unknown Allergy A ctive Reason For Referral No Information Medications Medication SIG (Take, Route, Frequency, Duration) Notes Start Date End Date Status AmLactin 12 % 1 application to affected area Externally Twice a day to feet; Duration: 30 days Not-Taking hydroCHLOROthiazide 12.5 MG 1 tablet Orally Not-Taking Rosuvastatin Calcium 20 MG 1 tablet Orally Once a day Active Tamsulosin HCl 0.4 MG 1 capsule Orally Once a day Not-Taking Fluticasone Propionate (Inhal) 50 MCG/BLIST Inhalation Flonase Active Fluorouracil twice a day on face Not-Taking Baby Aspirin Active Simvastatin 40 MG 1 tablet in the evening Orally Not-Taking Ammonium Lactate 12 % 1 application Externally to affected areas of dry skin to feet except for between the toes Twice a day; Duration: 30 days Not-Taking Advil Not-Taking Pantoprazole Sodium 20 MG Oral; Duration : 90 Active Tobramycin-dexAMETHasone Not-Taking Cephalexin 500 MG 1 capsule Orally every 6 hrs; Duration: 10 days 05/06/2024 Not-Taking Lansoprazole 30 MG Orally N ot-Taking Antibiotic Temp 10days Not-Jeremy ing Lansoprazole 30 MG 1 capsule before a meal Orally Once a day Not-Taking Lisinopril 5 MG 1 tablet Orally Once a day; Duration: 30 day(s) Not-Taking Esomeprazole Magnesium 20 MG Orally Once a day Not-Taking Colcrys 0.6 MG 1 tablet Orally once a day; Duration: 30 days for gout 08/06/2020 Not-Taking Immunizations Vaccine Route Administration Date Status Comme nts COVID-19 Moderna Vaccine Unknown 01/21/2022 Administered 05/01/2020,05/29/2020,2021 Influenza Unknown 12/21/2021 Administered Social History Tobacco Use: Social History Observation Description Date Details (start date - stop date) Never Smoker NA - NA Tobacco use other than smoking: Question Answer Notes Are you an other tobacco user? No Tobacco Control (Standard) Question Answer Notes Tobacco use: Nonsmoker Additional Findings: Tobacco non-user Current no nsmoker AUDIT-C (Standard) Question Answer Notes Did you have a drink contain ing alcohol in the past year? Yes How often did you have a dri nk containing alcohol in the past year? Daily or almost daily (4 points) How many drinks did you have on a typical day when you were drinking in the past year? 1 or 2 drinks (0 point) How often did you have six o r more drinks on one occasion in the past year? Never (0 point) Points 4 Interpretation Positive Problems Problem Type SNOMED Code ICD Code Onset Dates Problem Status W/U Status Risk Notes Problem Bilateral atherosclerosis of arteries of lower limbs (disorder) ([id number] ) Atherosclerosis of [place] artery of both lower extremities, with unspecified presence of clinical manifestation (I70.203) Active confirmed Q7(A), Q8(2B), Q9(1B,2 C) Vital Signs Blood pressure diastolic 72 mm Hg 09/01/2024 Height 5 ft 9 in in 09/01/2024 Blood pressure systolic 148 mm Hg 09/01/2024 Weight 180 lbs 09/01/2024 BMI 26.58 kg/m2 09/01/2024 Procedures Procedure Date Ordered Date Performed Result Body Sit e 90256-EPTPGYU NAIL, 6 OR MORE 01/27/2024 N/A 04968-YAHA SKIN LESIONS, 2 TO 4 01/27/2024 N/A 37125-WPQRDVL NAIL, 6 OR MORE 05/04/2024 N/A 91640-HLAM SKIN LESIONS, OVER 4 05/04/2024 N/A Encounters Encounter Location Date Provider Diagnosis [address] [address] 10/28/2023 Dhaval Rosario Tinea unguium B35.1 ; Pain in right toe(s) M79.674 ; Pain in left toe(s) M79.675 ; Plantar fascial fibromatosis M72.2 ; Primary osteoarthritis, left ankle and foot M19.072 ; Unspecified atherosclerosis of [place] arteries of extremities, bilateral legs I70.203 ; Xerosis cutis L85.3 and Idiopathic gout, multiple sites M10.[address] [address] 01/27/2024 [place] Atherosclerosis of [place] sh[place] artery of both lower extremities, with unspecified presence of clinical manifestation I70.203 ; Tinea unguium B35.1 ; Pain in right toe(s) M79.674 and Pain in left toe(s) M79.[address] [address] 05/04/2024 Loco Monroy Atherosclerosis of [place] artery of both lower extremities, with unspecified presence of clinical manifestation I70.203 ; Tinea unguium B35.1 ; Pain in right toe(s) M79.674 ; Pain in left toe(s) M79.675 and Xerosis of skin L85.[address] [address] 09/01/2024 [place] Atherosclerosis of [place] sh[place] artery of both lower extremities, with unspecified presence of clinical manifestation I70.203 ; Tinea unguium B35.1 ; Pain in right toe(s) M79.674 and Pain in left toe(s) M79.[address] [address] 10/06/2023 Dhaval Rosario [address] [address] 05/05/2024 [place] [address] [place] [address] 05/06/2024 [place] [facility] [address] [place] [address] 07/06/2024 [place] Assessments Encounter Date Diagnosis (ICD Code) Assessment Notes Treatment Notes Treatment Clinical Notes Section Notes 10/28/2023 Tinea unguium (ICD-10 - B35.1) 01/27/2024 Tinea unguium (ICD-10 - B35.1) 01/27/2024 Atherosclerosis of [place] sh[place] artery of both lower extremities, with unspecified presence of clinical manifestation (ICD-10 - I70.203) Q7(A), Q8(2B), Q9(1B,2C) 05/04/2024 Atherosclerosis of [place] artery of both lower extremities, with unspecified presence of clinical manifestation (ICD-10 - I70.203) Q7(A), Q8(2B), Q9(1B,2C) 09/01/2024 Atherosclerosis of [place] shosh[place] artery of both lower extremities, with unspecified presence of clinical manifestation (ICD-10 - I70.203) Q7(A), Q8(2B), Q9(1B,2C) 09/01/2024 Tinea unguium (ICD-10 - B35.1) 05/04/2024 Tinea unguium (ICD-10 - B35.1) 01/27/2024 Pain in right toe(s) (ICD-10 - M79.674) 10/28/2023 Pain in right toe(s) (ICD-10 - M79.674) 10/28/2023 Pain in left toe(s) (ICD-10 - M79.675) 01/27/2024 Pain in left toe(s) (ICD-10 - M79.675) 05/04/2024 Pain in right toe(s) (ICD-10 - M79.674) 09/01/2024 Pain in right toe(s) (ICD-10 - M79.674) 09/01/2024 Pain in left toe(s) (ICD-10 - M79.675) 10/28/2023 Plantar fascial fibromatosis (ICD-10 - M72.2) 05/04/2024 Pain in left toe(s) (ICD-10 - M79.675) 10/28/2023 Primary osteoarthritis, left ankle and foot (ICD-10 - M19.072) 05/04/2024 Xerosis of skin (ICD-10 - L85.3) 10/28/2023 Unspecified atherosclerosis of yomb[place] shosh[place] arteries of extremities, bilateral legs (ICD-10 - I70.203) 10/28/2023 Xerosis cutis (ICD-10 - L85.3) 10/28/2023 Idiopathic gout, multiple sites (ICD-10 - M10.09) Plan Of Treatment Pending Test Test Name Order Date X ray : Ankle, left 3V 08/06/2020 *Uric Acid, Serum 08/06/2020 *Sedimentation Rate-Westergren 79133-TXTLPAE NAIL, 6 OR MORE 01/27/2024 24573-ZJSCEUV NAIL, 6 OR MORE 05/04/2024 92349-GEMEULM NAIL, 6 OR MORE 04/09/2016 27140-NVVKBAR NAIL, 6 OR MORE 07/17/2016 23293-ZDQLMOL NAIL, 6 OR MORE 10/29/2016 71266-SXFOMKA NAIL, 6 OR MORE 01/28/2017 22620-IDQYWZO NAIL, 6 OR MORE 04/29/2017 85797-OWFZWHG NAIL, 6 OR MORE 08/05/2017 29806-YGLQNLD NAIL, 6 OR MORE 11/04/2017 08337-XARJBHI NAIL, 6 OR MORE 02/03/2018 32575-MUPTPPE NAIL, 6 OR MORE 10/28/2012 12811-NOKLFYL NAIL, 6 OR MORE 01/13/2013 93016-VYLAZSA NAIL, 6 OR MORE 04/20/2013 94012-YBOZYVR NAIL, 6 OR MORE 07/06/2013 69013-UNCRMRE NAIL, 6 OR MORE 09/28/2013 73506-TFFQCEY NAIL, 6 OR MORE 12/29/2013 92352-FQURPJN NAIL, 6 OR MORE 03/30/2014 68994-JODCXCQ NAIL, 6 OR MORE 06/29/2014 76809-ZRTJHMM NAIL, 6 OR MORE 09/28/2014 95596-LLHQEHD NAIL, 6 OR MORE 12/28/2014 13098-QZMQPMK NAIL, 6 OR MORE 04/04/2015 87117-BTZZOAL NAIL, 6 OR MORE 07/04/2015 56667-XDNRDZC NAIL, 6 OR MORE 10/04/2015 89767-IHLXBZH NAIL, 6 OR MORE 01/03/2016 03125-Ykkgwbmc Plate 02/06/2016 01718-Qkagyuwa Plate 06/29/2014 47522-Coxhajhg Plate 02/03/2018 76980- Debride <25 sq cm 02/21/2016 16434-FUCZ SKIN LESIONS, OVER 4 05/04/19 25 17171-CGSX SKIN LESIONS, 2 TO 4 01/27/20 24 37030-UBPM SKIN LESIONS, 2 TO 4 08/07/19 21 42167-GTVI SKIN LESIONS, 2 TO 4 11/22/19 21 35135-ARFR SKIN LESIONS, 2 TO 4 02/21/20 21 82549-IXTJ SKIN LESIONS, 2 TO 4 06/11/19 22 58943-LFAJ SKIN LESIONS, 2 TO 4 02/06/20 20 00548-HHIR SKIN LESIONS, 2 TO 4 05/10/19 21 31385-DFHRZUNW OF HEMATOMA/FLUID 018 Next Appt Details Provider Name:Ana Parra alexandria, 12/05/2024 01:00:00 PM, [address] [place], [address], Insurance Providers Payer Name Payer Address Payer Phone Subscriber Number Group Number Insured Name Patient Relationship to Insured Coverage Start Date Coverage End Date Medicare National [employer] [address] [place] [address] [id number] Mark Allen Self - patient is the insured 3 [employer] ([employer] [address] [place] [address] [id number] Mark Allen Self - patient is the insured Medical (General) History Medical History History ICD Code skin cancer reflux measles mumps chicken pox Hypercholesterolemia Surgical History Surgery Date(Month/Year) hernia skin cancer removed from ear 2012 colonoscopy 06/23/2013 cyst on head removed 01/02/2017 Left Cataract surgery 07/20/2017 Right Cataract surgery 07/27/2017 2 skin cancers removed from face 02/2018 tooth extraction 09/2018 skin cancer 04/19/20,08/2020 catheter urinary 3x 10/2021,11/2021 prostate surgery 02/10/22 Skin Biopsy 2023 heart valve- 09/2023 Hospitalization History Reason Date(Month/Year) [facility] ER -Prostate issues sameda y 2x 2021
== END 2024-09-19 14:28 | disposition home or self-care (01) ==
LOC: HO.HAP 14:27
PROVIDERS: Visit Provider Family Medicine
DX: Z46.1 Encounter for fitting and adjustment of hearing aid (principal); H90.3 Sensorineural hearing loss, bilateral
CPT/HCPCS: V5266

== ENCOUNTER 2024-10-26 16:07 | Outpatient (REF) | payer SELFPAY ==
--- OUTSIDE RECORDS SUMMARY | 2024-10-26 16:27 | XMS_ITS | Patient Health Record ---
Author Organization [facility] Address [address] [place] [address] Care Team Providers Care Court Reporter Name Role Phone Jm Benson MD Primary Care Provider Ana Delaney Unavailable [phone] Dhaval Rosario Unavailable [phone] Loco Monroy Unavailable [phone] Allergies Allergen (clinical drug ingredient) Drug/Non Drug [...] Vaccine Route Administration Date Status Comme nts Influenza Unknown 12/21/2021 Administered COVID-19 Moderna Vaccine Unknown 01/21/2022 Administered 05/01/2020,05/29/2020,2021 Social History Tobacco Use: Social History Observation [...] atherosclerosis of arteries of lower limbs (disorder) (94608512115815551 ) Atherosclerosis of manchester artery of both lower extremities, with unspecified presence of clinical manifestation (I70.203) Active confirmed Q7(A), Q8(2B), Q9(1B,2 C) Vital Signs Blood pressure diastolic 72 mm Hg 09/01/2024 Height 5 ft 9 in in 09/01/2024 Blood pressure systolic 148 mm Hg 09/01/2024 Weight 180 lbs 09/01/2024 BMI 26.58 kg/m2 09/01/2024 Procedures Procedure Date Ordered Date Performed Result Body Sit e 98565-JLSUPNM NAIL, 6 OR MORE 01/27/2024 N/A 83272-NEJS SKIN LESIONS, 2 TO 4 01/27/2024 N/A 98512-WLWJVHN NAIL, 6 OR MORE 05/04/2024 N/A 45206-GQQB SKIN LESIONS, OVER 4 05/04/2024 N/A Encounters Encounter Location Date Provider Diagnosis [address] [address] 10/28/2023 Dhaval Rosario Tinea unguium B35.1 ; Pain in right toe(s) M79.674 ; Pain in left toe(s) M79.675 ; Plantar fascial fibromatosis M72.2 ; Primary osteoarthritis, left ankle and foot M19.072 ; Unspecified atherosclerosis of manchester arteries of extremities, bilateral legs I70.203 ; Xerosis cutis L85.3 and Idiopathic gout, multiple sites M10.[address] [address] 01/27/2024 [place] [facility] Atherosclerosis of manchester artery of both lower extremities, with unspecified presence of clinical manifestation I70.203 ; Tinea unguium B35.1 ; Pain in right toe(s) M79.674 and Pain in left toe(s) M79.[address] [address] 05/04/2024 Loco Monroy Atherosclerosis of manchester artery of both lower extremities, with unspecified presence of clinical manifestation I70.203 ; Tinea unguium B35.1 ; Pain in right toe(s) M79.674 ; Pain in left toe(s) M79.675 and Xerosis of skin L85.[address] [address] 09/01/2024 [facility] Atherosclerosis of man[place] artery of both lower extremities, with unspecified presence of clinical manifestation I70.203 ; Tinea unguium B35.1 ; Pain in right toe(s) M79.674 and Pain in left toe(s) M79.[address] [address] 05/05/2024 [place] [facility] [address] [address] 05/06/2024 [facility] [address] [place] [address] 07/06/2024 [facility] Assessments Encounter Date Diagnosis (ICD Code) Assessment Notes Treatment Notes Treatment Clinical Notes Section Notes 10/28/2023 Tinea unguium (ICD-10 - B35.1) 01/27/2024 Tinea unguium (ICD-10 - B35.1) 01/27/2024 Atherosclerosis of manchester artery of both lower extremities, with unspecified presence of clinical manifestation (ICD-10 - I70.203) Q7(A), Q8(2B), Q9(1B,2C) 05/04/2024 Atherosclerosis of manchester artery of both lower extremities, with unspecified presence of clinical manifestation (ICD-10 - I70.203) Q7(A), Q8(2B), Q9(1B,2C) 09/01/2024 Atherosclerosis of manchester artery of both lower extremities, with unspecified [...] (ICD-10 - L85.3) 10/28/2023 Unspecified atherosclerosis of manchester arteries of extremities, bilateral legs (ICD-10 - I70.203) 10/28/2023 Xerosis cutis (ICD-10 - L85.3) 10/28/2023 Idiopathic gout, multiple sites (ICD-10 - M10.09) Plan Of Treatment Pending Test Test Name Order Date X ray : Ankle, left 3V 08/06/2020 *Uric Acid, Serum 08/06/2020 *Sedimentation Rate-Westergren 73169-JXPGJQW NAIL, 6 OR MORE 01/27/2024 62402-SNPWKWP NAIL, 6 OR MORE 05/04/2024 54104-YZCWEUO NAIL, 6 OR MORE 04/09/2016 60756-IVXQISD NAIL, 6 OR MORE 07/17/2016 43419-PQXVEMS NAIL, 6 OR MORE 10/29/2016 71958-GDCQMJS NAIL, 6 OR MORE 01/28/2017 86390-OYLQDNT NAIL, 6 OR MORE 04/29/2017 35248-ECVIOQV NAIL, 6 OR MORE 08/05/2017 58894-QNKAYFB NAIL, 6 OR MORE 11/04/2017 77993-GLSHEYX NAIL, 6 OR MORE 02/03/2018 45211-ZGTWCQZ NAIL, 6 OR MORE 10/28/2012 29732-TZWBFWP NAIL, 6 OR MORE 01/13/2013 17806-NHOMNNE NAIL, 6 OR MORE 04/20/2013 17010-LBMNMIR NAIL, 6 OR MORE 07/06/2013 33409-HHYWSTA NAIL, 6 OR MORE 09/28/2013 56872-SVIXMKV NAIL, 6 OR MORE 12/29/2013 47518-YEXUHMJ NAIL, 6 OR MORE 03/30/2014 57001-OXMELZI NAIL, 6 OR MORE 06/29/2014 93533-WFURURZ NAIL, 6 OR MORE 09/28/2014 23145-ECJIQGQ NAIL, 6 OR MORE 12/28/2014 81040-ISBWYCQ NAIL, 6 OR MORE 04/04/2015 84319-HGLSIVS NAIL, 6 OR MORE 07/04/2015 57238-ZULCMVC NAIL, 6 OR MORE 10/04/2015 45169-OLWFJOU NAIL, 6 OR MORE 01/03/2016 96186-Fluzhqqi Plate 02/06/2016 90172-Mfmopphm Plate 06/29/2014 93813-Qypmcxln Plate 02/03/2018 72435- Debride <25 sq cm 02/21/2016 56067-LPAE SKIN LESIONS, OVER 4 05/04/19 25 92192-IQCK SKIN LESIONS, 2 TO 4 01/27/20 24 26413-TTWD SKIN LESIONS, 2 TO 4 08/07/19 21 59249-VNUV SKIN LESIONS, 2 TO 4 11/22/19 21 40744-EOMG SKIN LESIONS, 2 TO 4 02/21/20 21 24151-OIOP SKIN LESIONS, 2 TO 4 06/11/19 22 53311-FLMU SKIN LESIONS, 2 TO 4 02/06/20 20 84296-MYDE SKIN LESIONS, 2 TO 4 05/10/19 21 49160-QGNHRMWH OF HEMATOMA/FLUID 018 Next Appt Details Provider Name:Ana Oliveiraalis ibrahim, 12/05/2024 01:00:00 PM, [address] [place], [address], Insurance Providers Payer Name Payer Address Payer Phone Subscriber Number Group Number Insured Name Patient Relationship to Insured Coverage Start Date Coverage End Date Medicare National Govt [employer] [address] [place] [address] [id number] Mark Allen Self - patient is the insured 3 [employer] [facility] [address] [place] [address] [phone] [id number] Mark Allen Self - patient is the insured Medical (General) History Medical History History ICD Code skin cancer reflux measles mumps chicken pox Hypercholesterolemia Surgical History Surgery Date(Month/Year) hernia skin cancer removed from ear 2013 colonoscopy 06/23/2013 cyst on head removed 01/02/2017 Left Cataract surgery 07/20/2017 Right Cataract surgery 07/27/2017 2 skin cancers removed from face 02/2018 tooth extraction 09/2018 skin cancer 04/19/20,08/2020 catheter urinary 3x 10/2021,11/2021 prostate surgery 02/10/22 Skin Biopsy 2023 heart valve- 09/2023 Hospitalization History Reason Date(Month/Year) [facility] ER -Prostate issues sameda y 2x 2021
--- OUTSIDE RECORDS SUMMARY | 2024-10-26 16:27 | XMS_ITS | Patient Health Record ---
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 Problem Colon cancer screening (202246006) Colon cancer screening (V76.51) Active confirmed Problem History of polyp of colon (408629399) H/O adenomatous polyp of colon (V12.72) Active confirmed Plan Of Treatment Future Test Test Name Order Date UPPER GI ENDOSCOPY 02/10/2013 COLONOSCOPY 02/10/2013 Insurance Providers Payer Name Payer Address Payer Phone Subscriber Number Group Number Insured Name Patient Relationship to Insured Coverage Start Date Coverage End Date MEDICARE OF [facility] [address] [facility] [place] [address] [id number] NANO BELLO Self - patient is the insured [facility] [address] [place] [address] [id number] NANO BELLO Self - patient is the insured Medical (General) History Medical History History ICD Code EGD/Colonoscopy 12/20/2007 Prince's esophagus--last EG D in 11/2007-small area of Prince's-no dysplasia, izgbk-xja-gowcr HH GERD colon polyps--tubular adenomas removed i n 2001 and 11/2007 hyperlipidemia Denies [place],DM,CVA,Lung disease,renal dise ase Diverticulosis-- extensive in sigmoid a nd descending colon Surgical History Surgery Date(Month/Year) hernia repair 3 skin cancers removed--basal cells-back , face, and ear numerous precancerous lesions removed
== END 2024-10-26 16:08 | disposition home or self-care (01) ==
LOC: HO.SH 16:07
PROVIDERS: Visit Provider Family Medicine
DX: H69.92 Unspecified Eustachian tube disorder, left ear (principal)
CPT/HCPCS: V5266

== ENCOUNTER 2024-12-13 13:23 | Outpatient (REF) | payer SELFPAY ==
--- OUTSIDE RECORDS SUMMARY | 2024-04-27 08:45 | XMS_ITS ---
[facility] [place] Address [address] [place] [address] Care Team Providers Care Controls Designer Name Role Phone Jm Benson MD Primary Care Provider Ana Delaney Unavailable [phone] Allergies Allergen (clinical drug ingredient) Drug/Non Drug [...] Not-Taking Encounters Encounter Location Date Provider Diagnosis [facility] [address] [address] 04/27/2024 Ana Bay Plan Of Treatment Next Appt Details Provider Name:Ana ibrahim, 02/22/2025 03:15:00 PM, [address] [place] [address], [phone], Progress Notes * ACE Mark JDOB:1934 (89 yo M)Acc No.[id number]:04/27/2024 Progress Note Patient: Mark CRUZ Provider: Maykel Bay DPM :1935 A ge:89 Y S ex:Male Date:04/27/2024 Address:[address] [place] [address] [place] Pcp:Jm Benson MD Subjective: * Chief Complaints: [...] Pending * Provider: Maykel Bay DPM Date: 04/27/2024 Generated for Sujata alvarado/Azael/Ying on: 12/13/2024 04:25 PM EDT
--- OUTSIDE RECORDS SUMMARY | 2024-07-28 09:00 | XMS_ITS ---
Author Organization [facility] Address [address] [place] [address] Care Team Providers Care Engine Hostler Name Role Phone Jm Benson MD Primary Care Provider Ana Delaney [phone] Encounters Encounter Location Date Provider Diagnosis [address] [address] 07/28/2024 Ana Bay Plan Of Treatment Next Appt Details Provider Name:Ana ibrahim, 02/22/2025 03:15:00 PM, [address] [place] [address], [phone], Progress Notes * Mark ALLENDOB:1934 (89 yo M)Acc No.[id number]:07/28/2024 Progress Note Patient: Mendez Mark CAO Provider: Maykel Bay DPM :1935 A ge:89 Y S ex:Male Date:07/28/2024 Address:[address] [place] [address] [facility] [id number] Pcp:Jm Benson MD Subjective: * Chief Complaints: * * Medical History: Objective: * Vitals: Assessment: Plan: * Treatment: * Images: * The named appointment provid er may or may not be the originator of this progress note, and it is not deemed complete until electronically signed by the appointment provider. Sign off status: Pending * Provider: Maykel Bay, PETE Date: 0 07/28/2024 Generated for Sujata alvarado/Azael/Ying on: 0 12/13/2024 04:25 PM EDT
--- OUTSIDE RECORDS SUMMARY | 2024-12-13 16:25 | XMS_ITS | Patient Health Record ---
Author Organization [facility] Address [address] [place] [address] Care Team Providers Care Chucker Name Role Phone Jm Benson MD Primary Care Provider Ana Delaney Unavailable [phone] Loco Monroy Unavailable [phone] Allergies Allergen (clinical drug ingredient) Drug/Non Drug Allergy documented on EMR Reaction Allergy Type Onset Date Status Seasonal (uncoded) Unknown Allergy A ctive Reason For Referral No Information Medications Medication SIG (Take, Route, Frequency, Duration) Notes Start Date End Date Status Simvastatin 40 MG 1 tablet in the evening Orally Not-Taking Pantoprazole Sodium 20 MG Oral; Duration : 90 Active Fluorouracil twice a day on face Not-Taking Cephalexin 500 MG 1 capsule Orally every 6 hrs; Duration: 10 days 05/06/2024 Not-Taking Lansoprazole 30 MG Orally N ot-Taking Lansoprazole 30 MG 1 capsule before a meal Orally Once a day Not-Taking Lisinopril 5 MG 1 tablet Orally Once a day; Duration: 30 day(s) Not-Taking AmLactin 12 % 1 application to affected area Externally Twice a day to feet; Duration: 30 days Not-Taking Tobramycin-dexAMETHasone Not-Taking Ammonium Lactate 12 % 1 application Externally to affected areas of dry skin to feet except for between the toes Twice a day; Duration: 30 days Not-Taking Advil Not-Taking Esomeprazole Magnesium 20 MG Orally Once a day Not-Taking Rosuvastatin Calcium 20 MG 1 tablet Orally Once a day Active Tamsulosin HCl 0.4 MG 1 capsule Orally Once a day Not-Taking Antibiotic Temp 10days Not-Jeremy ing Colcrys 0.6 MG 1 tablet Orally once a day; Duration: 30 days for gout 08/06/2020 Not-Taking Baby Aspirin Active hydroCHLOROthiazide 12.5 MG 1 tablet Orally Not-Taking Fluticasone Propionate (Inhal) 50 MCG/BLIST Inhalation Flonase Active Immunizations Vaccine Route Administration Date Status Comme nts Influenza Unknown 12/21/2021 Administered Influenza Unknown 11/22/2023 Administered COVID-19 Moderna Vaccine Unknown 01/21/2022 Administered [...] atherosclerosis of arteries of lower limbs (disorder) (95944159972947904 ) Atherosclerosis of cabazon artery of both lower extremities, with unspecified presence of clinical manifestation (I70.203) Active confirmed Q7(A), Q8(2B), Q9(1B,2 C) Vital Signs Blood pressure diastolic 75 mm Hg 12/05/2024 Height 5 ft 9 in in 12/05/2024 Blood pressure systolic 132 mm Hg 12/05/2024 Weight 186 lbs 12/05/2024 BMI 27.46 kg/m2 12/05/2024 Procedures Procedure Date Ordered Date Performed Result Body Sit e 74223-OGHUGKD NAIL, 6 OR MORE 01/27/2024 N/A 39688-RQCX SKIN LESIONS, 2 TO 4 01/27/2024 N/A 16899-AVDWARR NAIL, 6 OR MORE 05/04/2024 N/A 53768-PMFK SKIN LESIONS, OVER 4 05/04/2024 N/A Encounters Encounter Location Date Provider Diagnosis [address] [address] 01/27/2024 [facility] Atherosclerosis of cabazon artery of both lower extremities, with unspecified presence of clinical manifestation I70.203 ; Tinea unguium B35.1 ; Pain in right toe(s) M79.674 and Pain in left toe(s) M79.[address] [address] 05/04/2024 L[facility] Mon[facility] Atherosclerosis of cabazon artery of both lower extremities, with unspecified presence of clinical manifestation I70.203 ; Tinea unguium B35.1 ; Pain in right toe(s) M79.674 ; Pain in left toe(s) M79.675 and Xerosis of skin L85.[address] [address] 09/01/2024 [facility] Atherosclerosis of cabazon artery of both lower extremities, with unspecified presence of clinical manifestation I70.203 ; Tinea unguium B35.1 ; Pain in right toe(s) M79.674 and Pain in left toe(s) M79.[address] [address] 12/05/2024 [facility] Atherosclerosis of cabazon artery of both lower extremities, with unspecified presence of clinical manifestation I70.203 ; Tinea unguium B35.1 ; Pain in right toe(s) M79.674 and Pain in left toe(s) M79.[address] [address] 05/05/2024 [place] [address] [address] 05/06/2024 [place] [facility] [address] [address] 07/06/2024 [place] [address] [address] 11/09/2024 [facility] [address] [place] [address] 12/05/2024 [facility] [address] [place] [address] 12/09/2024 [facility] Assessments Encounter Date Diagnosis (ICD Code) Assessment Notes Treatment Notes Treatment Clinical Notes Section Notes 01/27/2024 Tinea unguium (ICD-10 - B35.1) 01/27/2024 Atherosclerosis of cabazon artery of both lower extremities, with unspecified presence of clinical manifestation (ICD-10 - I70.203) Q7(A), Q8(2B), Q9(1B,2C) 05/04/2024 Atherosclerosis of cabazon artery of both lower extremities, with unspecified presence of clinical manifestation (ICD-10 - I70.203) Q7(A), Q8(2B), Q9(1B,2C) 09/01/2024 Atherosclerosis of cabazon artery of both lower extremities, with unspecified presence of clinical manifestation (ICD-10 - I70.203) Q7(A), Q8(2B), Q9(1B,2C) 12/05/2024 Atherosclerosis of cabazon artery of both lower extremities, with unspecified presence of clinical manifestation (ICD-10 - I70.203) Q7(A), Q8(2B), Q9(1B,2C) 12/05/2024 Tinea unguium (ICD-10 - B35.1) 09/01/2024 Tinea unguium (ICD-10 - B35.1) 05/04/2024 Tinea unguium (ICD-10 - B35.1) 01/27/2024 Pain in right toe(s) (ICD-10 - M79.674) 01/27/2024 Pain in left toe(s) (ICD-10 - M79.675) 05/04/2024 Pain in right toe(s) (ICD-10 - M79.674) 09/01/2024 Pain in right toe(s) (ICD-10 - M79.674) 12/05/2024 Pain in right toe(s) (ICD-10 - M79.674) 12/05/2024 Pain in left toe(s) (ICD-10 - M79.675) 09/01/2024 Pain in left toe(s) (ICD-10 - M79.675) 05/04/2024 Pain in left toe(s) (ICD-10 - M79.675) 05/04/2024 Xerosis of skin (ICD-10 - L85.3) Plan Of Treatment Pending Test Test Name Order Date X ray : Ankle, left 3V 08/06/2020 *Uric Acid, Serum 08/06/2020 *Sedimentation Rate-Westergren 68212-YLTVTVU NAIL, 6 OR MORE 01/27/2024 53363-AFOKVAI NAIL, 6 OR MORE 05/04/2024 83884-GIPFYAZ NAIL, 6 OR MORE 04/09/2016 70461-UBUNQJU NAIL, 6 OR MORE 07/17/2016 57007-DKDGDXU NAIL, 6 OR MORE 10/29/2016 98217-RCZOLSK NAIL, 6 OR MORE 01/28/2017 90030-VRUOJAQ NAIL, 6 OR MORE 04/29/2017 33030-SICQATZ NAIL, 6 OR MORE 08/05/2017 70304-NDMIAWF NAIL, 6 OR MORE 11/04/2017 70767-GHLHTRH NAIL, 6 OR MORE 02/03/2018 08421-MHCLFQN NAIL, 6 OR MORE 10/28/2012 31761-SROPZCP NAIL, 6 OR MORE 01/13/2013 02146-GJJXCXH NAIL, 6 OR MORE 04/20/2013 65509-YNINFQS NAIL, 6 OR MORE 07/06/2013 68206-ATYYTNX NAIL, 6 OR MORE 09/28/2013 83877-NTGYNAW NAIL, 6 OR MORE 12/29/2013 29436-LUXDLSM NAIL, 6 OR MORE 03/30/2014 42605-NZZWFBH NAIL, 6 OR MORE 06/29/2014 96722-PKHWYUD NAIL, 6 OR MORE 09/28/2014 84788-GWARUHV NAIL, 6 OR MORE 12/28/2014 32393-FBDCTVC NAIL, 6 OR MORE 04/04/2015 25854-ADRCZIP NAIL, 6 OR MORE 07/04/2015 40663-FUAVBET NAIL, 6 OR MORE 10/04/2015 91325-UHLZFWP NAIL, 6 OR MORE 01/03/2016 51951-Scgbkwdg Plate 02/06/2016 53369-Vvvdmzjr Plate 06/29/2014 03940-Oxolrvsa Plate 02/03/2018 14081- Debride <25 sq cm 02/21/2016 24389-YXFP SKIN LESIONS, OVER 4 05/04/19 25 47503-HCLX SKIN LESIONS, 2 TO 4 01/27/20 24 83084-ZKPP SKIN LESIONS, 2 TO 4 08/07/19 21 65616-GLBA SKIN LESIONS, 2 TO 4 11/22/19 21 62955-LOYP SKIN LESIONS, 2 TO 4 02/21/20 21 77741-QVGU SKIN LESIONS, 2 TO 4 06/11/19 22 47061-TOGX SKIN LESIONS, 2 TO 4 02/06/20 20 98167-ADJQ SKIN LESIONS, 2 TO 4 05/10/19 21 32534-NNBLPXJA OF HEMATOMA/FLUID 018 Next Appt Details Provider Name:Ana Parra alexandria, 02/22/2025 03:15:00 PM, [address] [place] [address], [address], Insurance Providers Payer Name Payer Address Payer Phone Subscriber Number Group Number Insured Name Patient Relationship to Insured Coverage Start Date Coverage End Date Medicare National Govt [facility] [address] [place] [address] [id number] Mark Allen Self - patient is the insured 3 [employer] ([facility]) [address] [place] [address] [id number] Mark Allen Self - patient is [...] heart valve- 09/2023 Hospitalization History Reason Date(Month/Year) [facility] -Prostate issues sameda y 2x 2021
--- OUTSIDE RECORDS SUMMARY | 2024-12-13 16:25 | XMS_ITS | Patient Health Record ---
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 Problem Colon cancer screening (571366510) Colon cancer screening (V76.51) Active confirmed Problem History of polyp of colon (927308419) H/O adenomatous polyp of colon (V12.72) Active confirmed Plan Of Treatment Future Test Test Name Order Date UPPER GI ENDOSCOPY 02/10/2013 COLONOSCOPY 02/10/2013 Insurance Providers Payer Name Payer Address Payer Phone Subscriber Number Group Number Insured Name Patient Relationship to Insured Coverage Start Date Coverage End Date MEDICARE OF [facility] [address] [place] [address] [id number] NANO BELLO Self - patient is the insured [facility] [address] [place] [address] [id number] NANO BELLO Self - patient is the insured Medical (General) History Medical History History ICD Code EGD/Colonoscopy 12/20/2007 Prince's esophagus--last EG D in 11/2007-small area of Prince's-no dysplasia, iftoo-hjl-ugenh HH GERD colon polyps--tubular adenomas removed i n 2001 and 11/2007 hyperlipidemia Denies [place],DM,CVA,Lung disease,renal dise ase Diverticulosis-- extensive in sigmoid a nd descending colon Surgical History Surgery Date(Month/Year) hernia repair 3 skin cancers removed--basal cells-back , face, and ear numerous precancerous lesions removed
== END 2024-12-13 13:24 | disposition home or self-care (01) ==
LOC: HO.HAP 13:23
PROVIDERS: Visit Provider Family Medicine
DX: Z46.1 Encounter for fitting and adjustment of hearing aid (principal)
CPT/HCPCS: V5266

== ENCOUNTER 2025-02-10 15:04 | Outpatient (REF) | payer SELFPAY ==
--- OUTSIDE RECORDS SUMMARY | 2023-10-08 04:15 | XMS_ITS ---
Author Organization [facility] Address [address] [place] [id number] Care Team Providers Care Tool Adjuster Name Role Phone Jm Benson MD Primary Care Provider Ana Delaney Unavailable [phone] Loco Monroy Unavailable [phone] Encounters Encounter Location Date [facility] [address] [address] 10/08/2023 Loco Monroy Plan Of Treatment Next Appt Details Provider Name:Ana ibrahim, 02/22/2025 03:15:00 PM, [address] [place], [phone], Progress Notes * Mark ALLENDOB:1934 (89 yo M)Acc No.[id number]:10/08/2023 Progress Note Patient: Mendez Mark CAO Provider: Martina Monroy DPM :1935 A ge:88 Y S ex:Male Date:10/08/2023 Address:[address] [place] [address] [facility] [id number] Pcp:Jm Benson MD Subjective: * Chief Complaints: * * Medical History: Objective: * Vitals: Assessment: Plan: * Treatment: * Images: * The named appointment provid er may or may not be the originator of this progress note, and it is not deemed complete until electronically signed by the appointment provider. Sign off status: Pending * Provider: Martina Monroy DPM Date: 0 10/08/2023 Generated for Sujata Stearns on: 04/12/2024 03:10 PM EST
--- OUTSIDE RECORDS SUMMARY | 2023-10-14 08:15 | XMS_ITS ---
Author Organization [facility] Address [address] [place] [address] Care Team Providers Care Architectural Sales Consultant Name Role Phone Jm Benson MD Primary Care Provider Ana Delaney Unavailable [phone] Dhaval Anne Unavailable [phone] Encounters Encounter Location Date Provider Diagnosis [address] [address] 10/14/2023 Dhaval Anne Plan Of Treatment Next Appt Details Provider Name:Ana Fidel ibrahim, 02/22/2025 03:15:00 PM, [address] [place] [address], [phone], Progress Notes * Mark ALLENDOB:1934 (89 yo M)Acc No.[id number]:10/14/2023 Progress Note Patient: Mendez KILEY Mark Solorio Provider: Haydee Rosario DPM :1935 A ge:88 Y S ex:Male Date:10/14/2023 Address:[address] [place] [address] [facility] [id number] Pcp:Jm Benson MD Subjective: * Chief Complaints: * * Medical History: Objective: * Vitals: Assessment: Plan: * Treatment: * Images: * The named appointment provid er may or may not be the originator of this progress note, and it is not deemed complete until electronically signed by the appointment provider. Sign off status: Pending * Provider: Haydee Rosario DPM Date: 0 10/14/2023 Generated for Sujata Stearns on: 04/12/2024 03:10 PM EST
--- OUTSIDE RECORDS SUMMARY | 2023-10-15 08:15 | XMS_ITS ---
Author Organization [facility] Address [address] [place] [address] Care Team Providers Care Resource Room Special Education Teacher Name Role Phone Jm Benson MD Primary Care Provider Ana Delaney Unavailable [phone] Dhaval Anne Unavailable [phone] Encounters Encounter Location Date Provider Diagnosis [address] [address] 10/15/2023 Dhaval Anne Plan Of Treatment Next Appt Details Provider Name:Ana Fidel ibrahim, 02/22/2025 03:15:00 PM, [address] [place] [address], [phone], Progress Notes * Mark ALLENDOB:1934 (89 yo M)Acc No.[id number]:10/15/2023 Progress Note Patient: Mendez KILEY Mark Solorio Provider: Haydee Rosario DPM :1935 A ge:88 Y S ex:Male Date:10/15/2023 Address:[address] [place] [address] [facility] [id number] Pcp:Jm Benson MD Subjective: * Chief Complaints: * * Medical History: Objective: * Vitals: Assessment: Plan: * Treatment: * Images: * The named appointment provid er may or may not be the originator of this progress note, and it is not deemed complete until electronically signed by the appointment provider. Sign off status: Pending * Provider: Haydee Rosario DPM Date: 0 10/15/2023 Generated for Sujata Stearns on: 04/12/2024 03:11 PM EST
--- OUTSIDE RECORDS SUMMARY | 2024-04-27 07:45 | XMS_ITS ---
Author [facility] [place] Address [address] [place] [address] Care Team Providers Care Salesperson Art Objects Name Role Phone Jm Benson MD Primary Care Provider Ana Delaney Unavailable [phone] Allergies Allergen (clinical drug ingredient) Drug/Non Drug Allergy documented on EMR Reaction Allergy Type Onset Date Status Seasonale Unknown Drug Allergy Active REASON FOR VISIT Dr Sanchez Medications Medication SIG (Take, Route, Frequency, Duration) Notes Start Date End Date Status Advil Not-Taking Fluorouracil twice a day on face Not-Taking Tobramycin-dexAMETHasone Not-Taking hydroCHLOROthiazide 12.5 MG 1 tablet Orally Not-Taking Simvastatin 40 MG 1 tablet in the evening Orally Not-Taking Colcrys 0.6 MG 1 tablet Orally once a day; Duration: 30 days for gout 08/06/2020 Not-Taking Esomeprazole Magnesium 20 MG Orally Once a day Not-Taking Lansoprazole 30 MG 1 capsule before a meal Orally Once a day Not-Taking Antibiotic Temp 10days Not-Jeremy ing Tamsulosin HCl 0.4 MG 1 capsule Orally Once a day Not-Taking Fluticasone Propionate (Inhal) 50 MCG/BLIST Inhalation Active Pantoprazole Sodium 20 MG Oral; Duration : 90 Active AmLactin 12 % 1 application to affected area Externally Twice a day to feet; Duration: 30 days Active Baby Aspirin Active Rosuvastatin Calcium 20 MG 1 tablet Oral ly Once a day Active Lansoprazole 30 MG Orally N ot-Taking Lisinopril 5 MG 1 tablet Orally Once a day; Duration: 30 day(s) Not-Taking Encounters Encounter Location Date Provider Diagnosis [facility] [address] [address] 04/27/2024 Ana Bay Plan Of Treatment Next Appt Details Provider Name:Ana ibrahim, 02/22/2025 03:15:00 PM, [address] [place] [address], [phone], Progress Notes * ACE Mark JDOB:1934 (89 yo M)Acc No.[id number]:04/27/2024 Progress Note Patient: Mark CRUZ Provider: Maykel Bay DPM :1935 A ge:89 Y S ex:Male Date:04/27/2024 Address:[address] [place] [address] [place], [place] Pcp:Jm Benson MD Subjective: * Chief Complaints: * [address] Sanchez[address] * Medical History: S kin cancer, Reflux, Measles, Mumps, Chicken pox. * Medications: T aking Rosuvastatin Calcium 20 MG Tablet 1 tablet Orally Once a day , Taking AmLactin 12 % Lotion 1 application to affected area Externally Twice a day to feet , Taking Baby Aspirin , Taking Fluticasone Propionate (Inhal) 50 MCG/BLIST Aerosol Powder Breath Activated Inhalation , Taking Pantoprazole Sodium 20 MG Tablet Delayed Release Oral , Not-Taking/PRN Lansoprazole 30 MG Capsule Delayed Release 1 capsule before a meal Orally Once a day , Not-Taking/PRN Antibiotic , Notes to Pharmacist: Temp 10days, Not-Taking/PRN Colcrys 0.6 MG Tablet 1 tablet Orally once a day , Notes to Pharmacist: for gout, Not-Taking/PRN Esomeprazole Magnesium 20 MG Capsule Delayed Release Orally Once a day , Not-Taking/PRN Tamsulosin HCl 0.4 MG Capsule 1 capsule Orally Once a day , Not-Taking/PRN hydroCHLOROthiazide 12.5 MG Capsule 1 tablet Orally , Not-Taking/PRN Simvastatin 40 MG Tablet 1 tablet in the evening Orally , Not-Taking/PRN Fluorouracil twice a day on face , Not-Taking/PRN Tobramycin-dexAMETHasone , Not-Taking/PRN Advil , Not-Taking/PRN Lansoprazole 30 MG Capsule Delayed Release Orally , Not-Taking/PRN Lisinopril 5 MG Tablet 1 tablet Orally Once a day * Allergies: S easonale. Objective: * Vitals: Assessment: Plan: * Treatment: * Images: * The named appointment provid er may or may not be the originator of this progress note, and it is not deemed complete until electronically signed by the appointment provider. Sign off status: Pending * Provider: Maykel Bay DPM Date: 0 04/27/2024 Generated for Sujata alvarado/Azael/Ying on: 04/12/2024 03:11 PM EST
--- OUTSIDE RECORDS SUMMARY | 2024-07-28 08:00 | XMS_ITS ---
Author Organization [facility] Address [address] [place] [address] Care Team Providers Care Collection Systems Consultant Name Role Phone Jm Benson MD Primary Care Provider Ana Delaney [phone] Encounters Encounter Location Date Provider Diagnosis [address] [address] 07/28/2024 Ana Bay Plan Of Treatment Next Appt Details Provider Name:Ana ibrahim, 02/22/2025 03:15:00 PM, [address] [place] [address], [phone], Progress Notes * Mark ALLENDOB:1934 (89 yo M)Acc No.[id number]:07/28/2024 Progress Note Patient: Mendez Mark CAO Provider: Maykel Bay DPM :1935 A ge:89 Y S ex:Male Date:07/28/2024 Address:[address] [place] [address] [facility] [id number] Pcp:Jm Benson MD Subjective: * Chief Complaints: * * Medical History: Objective: * Vitals: Assessment: Plan: * Treatment: * Images: * The named appointment provid er may or may not be the originator of this progress note, and it is not deemed complete until electronically signed by the appointment provider. Sign off status: Pending * Provider: Maykel Bay DPM Date: 0 07/28/2024 Generated for Sujata alvarado/Azael/Ying on: 1 04/12/2024 03:11 PM EST
--- OUTSIDE RECORDS SUMMARY | 2025-02-10 15:11 | XMS_ITS | Patient Health Record ---
Author Organization [facility] Address [address] [place] [address] Care Team Providers Care Bridge Builder Name Role Phone Jeronimo Monk MD Primary Care Provider Simone De La Rosa [phone] Allergies Allergen (clinical drug ingredient) Drug/Non Drug Allergy documented on EMR Reaction Allergy Type Onset Date Status pantoprazole Protonix Unknown Drug Allergy Acti ve Reason For Referral No Information Medications Medication SIG (Take, Route, Frequency, Duration) Notes Start Date End Date Status hydroCHLOROthiazide 12.5mg 1 po qd Active Colyte with Flavor Packs 227 .1 GM Solution Reconstituted As directed Orally As directed; Duration: 1 day(s) 02/10/2013 Active Lansoprazole 30mg 1 po qd Active Fluticasone Propionate 50 mcg 2 sprays e ach nostril qd Active Simvastatin 40mg 1/2 po qd Act alejandro Social History Social History Additional Details Category Social Info Options Details Miscellaneous: Marital status: 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 Problem Colon cancer screening (372344518) Colon cancer screening (V76.51) Active confirmed Problem History of polyp of colon (683203098) H/O adenomatous polyp of colon (V12.72) Active confirmed Plan Of Treatment Future Test Test Name Order Date UPPER GI ENDOSCOPY 02/10/2013 COLONOSCOPY 02/10/2013 Insurance Providers Payer Name Payer Address Payer Phone Subscriber Number Group Number Insured Name Patient Relationship to Insured Coverage Start Date Coverage End Date MEDICARE OF [place] [address] [place] [address] [id number] NANO BELLO Self - patient is the insured [employer] [address] [place] [address] [id number] NANO BELLO Self - patient is the insured Medical (General) History Medical History History ICD Code EGD/Colonoscopy 12/20/2007 Prince's esophagus--last EG D in 11/2007-small area of Prince's-no dysplasia, cskdn-yzt-xquzu HH GERD colon polyps--tubular adenomas removed i n 2001 and 11/2007 hyperlipidemia Denies [place],DM,CVA,Lung disease,renal dise ase Diverticulosis-- extensive in sigmoid a nd descending colon Surgical History Surgery Date(Month/Year) hernia repair 3 skin cancers removed--basal cells-back , face, and ear numerous precancerous lesions removed
--- OUTSIDE RECORDS SUMMARY | 2025-02-10 15:11 | XMS_ITS | Data Portability ---
Author Organization [facility], Allergy Address [address] [address] Care Team Providers Care Panel Saw Operator Name Role Phone SIMONE NATH Primary Care [...] three months. [email or web address] Not available 03/07/2024 14:08:13 06/10/2024 06/10/2024 Impacted [...] requests to follow up in 3 months. Not available 06/10/2024 14:31:51 07/13/2024 07/13/2024 Left tube is patent. No otorrhea. Dry debris was removed from left EAC. Advised him to stop all drops. Follow up in August as scheduled for routine ear cleaning. Not available 07/13/2024 13:28:13 11/14/2024 11/14/2024 Excess cerumen disimpacted bilaterally. Left T-tube is in good position and patent with aerated middle ear space. Right ear is normal. Patient will continue with full-time use of amplification. Follow-up with PA for cerumen removal in 6 months [email or web address] Not available 11/14/2024 13:48:52 Plan of Treatment Reminders Order Date Submit Date Provider Last Modified By Organization Details Last Modified Time Details Appointments Establish ed 15 2025 01:00P M JAC STRINGER Not available Not available Not available Lab None recorded. Referral None recorded. Procedures None recorded. Surgeries None recorded. Imaging None recorded. Medication Orders clotrimaz ole 1 % topical solution 2024 025 [facility]/Pharmacy #[id number], [address] [facility] , [place], [address], 07/13/2024 13:15:40 Patient TargetsNo targets recorded. Patient [...] Name and Address Organization Details Recorded Time Dysfuncti on of eustachia n tube 60648523 Active 2013 Eustachia n tube dysfuncti on; Note: Date Diagnosed : 02/24/2014 2:07 PM (381.81) Not Available [facility] 4 02:12:51 Mixed conductiv e and sensorine ural hearing loss, bilateral 292317548 Active 2013 Mixed HL, bilateral ; Note: Date Diagnosed : 02/24/2014 1:34 PM (389.22) Not Available [facility] 4 02:15:53 Impacted cerumen of bilateral ears 40198612864 23991 Active 2014 Impacted cerumen, bilateral ; Note: Date Diagnosed : 5 2:29 PM (H61.23) Not Available [facility] 4 02:14:40 Disorder of left Eustachia n tube 13551431789 32127 Active 2015 Other specified disorders of Eustachia n tube, left ear; Note: Date Diagnosed : 07/06/2015 2:16 PM (H69.82) Not Available [facility] 4 02:14:49 Chronic mycotic otitis externa 642762604 Active 2015 Chronic mycotic otitis externa; Note: Date Diagnosed : 01/30/2016 1:33 PM (380.15) Not Available [facility] 4 02:14:54 Infective otitis externa of left ear 21868521371 22164 Active 2015 Other infective otitis externa, left ear; Note: Date Diagnosed : 02/27/2016 2:38 PM (H60.392) Not Available [facility] 4 02:14:54 Impacted cerumen in right ear 67181192662 02250 Active 2016 Impacted cerumen, right ear; Note: Date Diagnosed : 10/14/2016 1:43 PM (H61.21) Not Available [facility] 4 02:13:33 Otorrhea of left ear 87067140227 86339 Active 2018 Otorrhea, left ear; Note: Date Diagnosed : 05/04/2018 1:29 PM (H92.12) Otorrhe a, left ear; Note: Date Diagnosed : 5 1:44 PM (H92.12) ; Start Date : 5 Not Available [facility] 4 02:14:13 Sensorine ural hearing loss of bilateral ears 917618969 Active 2019 Sensorine ural hearing loss, bilateral ; Note: Date Diagnosed : 05/17/2019 1:53 PM (H90.3) Not Available [facility] 4 02:15:19 Itching of skin 877300734 Active 2022 Other pruritus; Note: Date Diagnosed : 11/11/2022 3:09 PM (L29.8) Not Available [facility] 4 02:14:26 Problem Notes None recorded. Procedures Surgical History Date Name Laterality Status Provider Name and Address Organization Details Recorded Time 5 Cerumen removal without microscope bilat completed HUMPHREY ZHANG MD [address] [place] [address], [id number] - [facility] 11/14/2024 13:45:07 5 Cerumen removal without microscope bilat completed Jemima Will [facility] 06/10/2024 14:29:07 hernia repair completed Isa Lora [facility] 11/14/2024 13:25:07 Imaging Results None recorded. Procedure Notes None recorded. Medical Equipment None Reported. Allergies No known drug allergies Medications Name Sig Start Date Stop Date Status Note LastModified by Organization Details LastModified Time amoxicill in 500 mg capsule TAKE 4 CAPSULES ONCE ONE HOUR PRIOR TO DENTAL WORK OR CLEANING active Not Available Not Available No t Available ofloxacin 0.3 % eye drops 03/07 completed Medicati on ID: [id number] D uration Value: 10 Prescri bed By Name: BERNIE Grande nd Name: ofloxaci n Send Method: E-Prescr ibed Sub s Allowed: subs OK Speci al Instruct ion: apply 5 drops to left ear BID x 10 days Med icationG enericNa me: ofloxaci n Not Available Not Available Not Available simvastat in 40 mg tablet 07/12 completed Medicati on ID: [id number] Du ration Value: 90 Brand Name: simulicesta tin Send Method: E-Prescr ibed Sub s [...] a day 03/07 completed Medicati on ID: [id number] D uration Value: 14 Brand Name: ofloxaci n Send Method: E-Prescr ibed Sub s Allowed: subs OK Medic ationGen ericName : ofloxaci n Not Available Not Available Not Available triamcino lone acetonide 0.025 % topical cream 03/07 completed Medicati on ID: [id number] B rand Name: triamcin olone acetonid e Send Method: E-Prescr ibed Sub s Allowed: subs OK Medic ationGen ericName : triamcin olone acetonid e Not Available Not Available Not Available tamsulosi n 0.4 mg capsule 03/07 completed Medicati on ID: [id number] B rand Name: tamsulos in Send Method: [...] PLEASE SEE ATTACHED FOR DETAILED DIRECTIO NS 11/14 completed Not Available Not Available Not Available lisinopri l 5 mg tablet 07/12 completed Medicati on ID: [id number] D uration Value: 90 Brand Name: lisinopr [...] mg tablet 08/07 completed Medicati on ID: [id number] Du ration Value: 30 Reason: () Brand Name: naproxen Send Method: E-Prescr ibed Sub s Allowed: subs OK Speci al Instruct ion: TAKE 1 TABLET BY MOUTH TWICE A DAY AFTER MEALS Me dication GenericN nakul: naproxen Not Available Not Available Not Available esomepraz ole magnesium 20 mg capsule,d elayed release 03/07 completed Medicati on ID: [id number] B rand Name: esomepra zole carlosu m Send Method: E-Prescr ibed Sub s Allowed: subs OK [facility] esomepra zole carlosu m Not Available Not Available Not Available TobraDex 0.3 %-0.1 % eye drops,[place] 4 drop 03/07 completed Medicati on ID: [id number] D uration Value: 7 Prescri bed By Name: BERNIE Lowe nd Name: TobraDex Send Method: E-Prescr ibed Sub s Allowed: subs OK Speci al Instruct ion: apply to left ear. sit with drops in ear x 5 minutes. no water in ear. Med icationG enericNa me: TobraDex Not Available Not Available Not Available azithromy stuart 500 mg tablet TAKE 1 TABLET BY MOUTH EVERY DAY 11/14 completed Not Available Not Available Not Available Ciprodex 0.3 %-0.1 % ear drops,[place] pension 4 drop 03/07 completed Medicati on ID: [id number] D uration Value: 14 Prescri bed By Name: BERNIE Garcia nd Name: Ciprodex Send Method: E-Prescr ibed Sub s Allowed: subs OK Medic ationGen ericName : Ciprodex Not Available Not Available Not Available rosuvasta tin 20 mg tablet TAKE 1 TABLET DAILY active Not Available Not Available No t Available hydrochlo rothiazid e 12.5 mg tablet 07/08 completed Medicati on ID: [id number] Re ason: () Brand Name: hydrochl orothiaz [...] Updated DateTime 06/10/2024 172.72 cm 30.1 kg/m2 95133.29 g Nadya Moon [place] - [facility] 06/10/2024 14:11:20 Date Recorded Body height Provider Name an d Address Organization Details Last Updated DateTime 07/13/2024 172.72 cm MARITZA ADAM [place] - [facility] 07/13/2024 13:12:57 Date Recorded Body height Body mass index (BMI) Body weight Provider Name and Address Organization Details Last Updated DateTime 12/07/2023 172.72 cm 30.1 kg/m2 27451.29 g Hillary Menard [place] - [facility] 12/07/2023 13:44:57 Date Recorded Body height Body mass index (BMI) Body weight Provider Name and Address Organization Details Last Updated DateTime 03/07/2024 172.72 cm 30.1 kg/m2 79978.29 g Destiny Bonilla [place] [facility] 03/07/2024 13:38:20 Social History None recorded. Functional Status None recorded. Mental Status None recorded. Family History Nothing Reported. Medical History Condition Response Allergies/Hayfever Y Cancer Y High Cholesterol Y GERD/Reflux Y Past Encounters Encounter ID Performer Location Encounter Start Date Encounter Closed Date Diagnosis/Indication Diagnosis SNOMED-CT Code Diagnosis ICD10 Code Diagnosis IMO Codes Diagnosis Note [id number] ZENY JIMENEZ PA-C [facility] on [address] [place] [address] 12/07/2023 13:35:57 12/07/2023 13:54:32 Disorder of left Eustachian tube 6974658359 915966 H69.82 Impacted c erumen of bilateral ears 7305242809 238944 H61.23 [id number] ZENY JIMENEZ PA-C [facility] on [address] [place] [phone] 03/07/2024 13:32:10 03/07/2024 14:14:39 Disorder of left Eustachian tube 5021081517 613081 H69.82 Impacted c erumen of bilateral ears 5768598036 833847 H61.23 [id number] JEMIMA WILL PA-C [facility] on [address] [place] [address] 06/10/2024 14:08:27 06/10/2024 14:28:12 Chronic mycotic otitis externa 068755382 H60.399 Impacted c erumen of bilateral ears 0696642428 585768 H61.23 [id number] JEMIMA WILL PA-C [facility] [address] [address] 07/13/2024 13:07:26 07/13/2024 13:26:57 Disorder of left Eustachian tube 8791116717 841172 H69.82 Otorrhea of left ear 943 1152100 942236 H92.12 [id number] HUMPHREY ZHANG MD [facility] on [address] [place] [phone] 11/14/2024 13:21:57 11/14/2024 13:48:15 Impacted cerumen of bilateral ears 1673562483 247510 H61.23 Dysfunctio n of eustachian tube 37320984 H69.80 Sensorineu ral hearing loss of bilateral ears 042186037 H90.3 Continue with full-time use of amplificat ion technology Health Concerns Section Related Observation LastModified by Organization Detai ls LastModified Time None Recorded Concern Status LastModified by Organization Details LastModified Time None Recorded Advance Directives Directive None Recorded Payers Insurance Date Sequence Insurance Name Policy Number Policy Marcos Covered Member ID Marcos Member ID Guarantor Name 11/14/2024 2 [facility] IN[facility]MN[facility] PLAN (INDEMNITY) [id number] Mark Allen [id number] Mark Allen 11/14/2024 1 MEDICARE B-[place]: NATIONAL [employer] SERVICES Mark Allen [id number] Mark Allen Notes Date Note Type Note Provider Name and Address Organization Details Recorded Time 12/07/2023 text/html ROS as noted in the [facility] 88 year old male presents today for ear cleaning and tube check. History of left t-tube placed by .No concerns today. He recently underwent an aortic valve replacement and has been doing very well. Zeny germain [place] - [facility] 12/07/2023 15:43:19 03/07/2024 text/html ROS as noted in the [facility] 88 year old male presents today for ear cleaning and tube check. History of left t-tube placed by .He reports a little itching in the left ear. He has been using OTC hydrocortisone which has been helping. Zeny germain [place] - [facility] 03/07/2024 14:08:53 06/10/2024 text/html ROS as noted in the [facility] 89 year old male presents for routine three month ear cleaning. He does report bilateral ear itching. He uses hydrocortisone oil as needed. NICK GUEVARA MD [address] [place] [address], [phone], [place] - [facility] 06/13/2024 08:37:33 07/13/2024 text/html ROS as noted in the [facility] 89 year old male presents for follow up of left otorrhea. He used the Clotrimazole drops for 2-3 days after last office visit then accidentally put too many drops in and had pain. He discontinued the Clotrimazole and treated his otorrhea with Ofloxacin drops that he had at home. No further otorrhea. ZORAN OCONNELL MD [address] [facility],[place] [address], [place], [address], [facility] - [facility] 07/14/2024 13:02:45 11/14/2024 text/html 89-year-old male with history of eustachian tube dysfunction, status post placement of left T-tube back in 2014. He has sensorineural hearing loss requiring binaural amplification. Comes in periodically for ear cleaning. He has had difficulties with intermittent fungal dermatitis and otorrhea in the past. Currently asymptomatic. Uses OTC cortisone intermittently for itching. HUMPHREY ZHANG MD [address] [facility] [address], [place], [address], [facility] 11/14/2024 13:50:15
--- OUTSIDE RECORDS SUMMARY | 2025-02-10 15:11 | XMS_ITS | Patient Health Record ---
Author Organization [facility] Address [address] [place] [address] Care Team Providers Care Ear Mold Laboratory Technician Name Role Phone Jm Benson MD Primary Care Provider Ana Delaney Unavailable [phone] Loco Monroy Unavailable [phone] Allergies Allergen (clinical drug ingredient) Drug/Non Drug [...] atherosclerosis of arteries of lower limbs (disorder) ([id number] ) Atherosclerosis of [place] artery of both lower extremities, with unspecified presence of clinical manifestation (I70.203) Active confirmed Q7(A), Q8(2B), Q9(1B,2 C) Vital Signs Blood pressure diastolic 75 mm Hg 12/05/2024 Height 5 ft 9 in in 12/05/2024 Blood pressure systolic 132 mm Hg 12/05/2024 Weight 186 lbs 12/05/2024 BMI 27.46 kg/m2 12/05/2024 Procedures Procedure Date Ordered Date Performed Result Body Sit e 76651-XNERUCP NAIL, 6 OR MORE 05/04/2024 N/A 21738-FKIT SKIN LESIONS, OVER 4 05/04/2024 N/A Encounters Encounter Location Date Provider Diagnosis [facility] [address] [address] 05/04/2024 Loco Monroy Atherosclerosis of [place] artery of both lower extremities, with unspecified presence of clinical manifestation I70.203 ; Tinea unguium B35.1 ; Pain in right toe(s) M79.674 ; Pain in left toe(s) M79.675 and Xerosis of skin L85.[address] [address] 09/01/2024 [place] Atherosclerosis of [place] artery of both lower extremities, with unspecified presence of clinical manifestation I70.203 ; Tinea unguium B35.1 ; Pain in right toe(s) M79.674 and Pain in left toe(s) M79.[address] [address] 12/05/2024 [place] Atherosclerosis of [place] artery of both lower extremities, with unspecified presence of clinical manifestation I70.203 ; Tinea unguium B35.1 ; Pain in right toe(s) M79.674 and Pain in left toe(s) M79.[address] [address] 05/05/2024 [place] [address] [address] 05/06/2024 [place] [address] [address] 07/06/2024 [place] [address] [address] 11/09/2024 [place] [address] [address] 12/05/2024 [place] [address] [address] 12/09/2024 [place] Assessments Encounter Date Diagnosis (ICD Code) Assessment Notes Treatment Notes Treatment Clinical Notes Section Notes 05/04/2024 Atherosclerosis of [place] artery of both lower extremities, with unspecified presence of clinical manifestation (ICD-10 - I70.203) Q7(A), Q8(2B), Q9(1B,2C) 09/01/2024 Atherosclerosis of [place] artery of both lower extremities, with unspecified presence of clinical manifestation (ICD-10 - I70.203) Q7(A), Q8(2B), Q9(1B,2C) 12/05/2024 Atherosclerosis of [place] artery of both lower extremities, with unspecified presence of clinical manifestation (ICD-10 - I70.203) Q7(A), Q8(2B), Q9(1B,2C) 12/05/2024 Tinea unguium (ICD-10 - B35.1) 09/01/2024 Tinea unguium (ICD-10 - B35.1) 05/04/2024 Tinea unguium (ICD-10 - B35.1) 05/04/2024 Pain in right toe(s) (ICD-10 - [...] 08/06/2020 *Uric Acid, Serum 08/06/2020 *Sedimentation Rate-Westergren 42020-VRDRYKN NAIL, 6 OR MORE 01/27/2024 26943-OISFNWU NAIL, 6 OR MORE 05/04/2024 42869-CHKMCDR NAIL, 6 OR MORE 04/09/2016 94797-DEWVGST NAIL, 6 OR MORE 07/17/2016 15930-NZPKNKY NAIL, 6 OR MORE 10/29/2016 25069-THGACVJ NAIL, 6 OR MORE 01/28/2017 92407-QHSKAJT NAIL, 6 OR MORE 04/29/2017 18715-ZCGCLIR NAIL, 6 OR MORE 08/05/2017 76476-VKKFFZZ NAIL, 6 OR MORE 11/04/2017 38885-WKERQJK NAIL, 6 OR MORE 02/03/2018 79319-HXWVNMO NAIL, 6 OR MORE 10/28/2012 36902-ZCLZUSK NAIL, 6 OR MORE 01/13/2013 78003-JJAHATD NAIL, 6 OR MORE 04/20/2013 65399-UNSWIQX NAIL, 6 OR MORE 07/06/2013 28142-FVGDMZF NAIL, 6 OR MORE 09/28/2013 41790-QTOVORC NAIL, 6 OR MORE 12/29/2013 72570-DWKAGNS NAIL, 6 OR MORE 03/30/2014 75976-MFCDHMM NAIL, 6 OR MORE 06/29/2014 19667-DNFECIO NAIL, 6 OR MORE 09/28/2014 06656-YMBBAQZ NAIL, 6 OR MORE 12/28/2014 57785-YGMIQGZ NAIL, 6 OR MORE 04/04/2015 82169-EEPXPWP NAIL, 6 OR MORE 07/04/2015 62280-KGAQNIL NAIL, 6 OR MORE 10/04/2015 70055-QWGXNUX NAIL, 6 OR MORE 01/03/2016 77604-Ypxowcvq Plate 02/06/2016 99337-Yjrbsuar Plate 06/29/2014 57145-Yhzvqitx Plate 02/03/2018 66198- Debride <25 sq cm 02/21/2016 48819-GYCV SKIN LESIONS, OVER 4 05/04/19 25 30831-NAQH SKIN LESIONS, 2 TO 4 01/27/20 24 53719-HMRC SKIN LESIONS, 2 TO 4 08/07/19 21 16883-MHOC SKIN LESIONS, 2 TO 4 11/22/19 21 16462-BHMQ SKIN LESIONS, 2 TO 4 02/21/20 21 48455-PISJ SKIN LESIONS, 2 TO 4 06/11/19 22 33969-EJRD SKIN LESIONS, 2 TO 4 02/06/20 20 11372-GSPA SKIN LESIONS, 2 TO 4 05/10/19 21 37793-OUJHGKLS OF HEMATOMA/FLUID 018 Next Appt Details Provider Name:Ana Fidel ibrahim, 02/22/2025 03:15:00 PM, [address] [place] [address], [place], [address], Insurance Providers Payer Name Payer Address Payer Phone Subscriber Number Group Number Insured Name Patient Relationship to Insured Coverage Start Date Coverage End Date Medicare National [employer] [address] [place] [address] [id number] Mark Allen Self - patient is the insured 3 [employer] ([employer]) [address] [place] [address] [id number] Mark Allen Self - patient is [...] 09/2023 Hospitalization History Reason Date(Month/Year) [facility] ER -Prostate issues sameda y 2x 2021
--- OUTSIDE RECORDS SUMMARY | 2025-02-10 15:12 | XMS_ITS | Continuity of Care Document ---
Author Organization [place] - [facility], [facility] Address [address] [place] [address] Care Team Providers Care Data Management Manager Name Role Phone SIMONE NATH Primary Care Provider Assessment Encounter Date Assessment Date Assessment LastModified by Organization Details LastModified Time 11/14/2024 11/14/2024 Excess cerumen disimpacted bilaterally. Left T-tube is in good position and patent with aerated middle ear space. Right ear is normal. Patient will continue with full-time use of amplification. Follow-up with JAC for cerumen removal in 6 months [email or web address] Not available 11/14/2024 13:48:52 Plan of Treatment Reminders Order Date Submit Date Provider Last Modified By Organization Details Last Modified Time Details Appointments Establish ed 15 2025 01:00P JAC CONTRERAS Not available Not available Not available Lab None recorded. Referral None recorded. Procedures None recorded. Surgeries None recorded. Imaging None recorded. Medication Orders None recorded. Patient TargetsNo targets recorded. Patient InstructionsNo instructions recorded. Reason for Referral None Reported. Problems Name Problem SNOMED Code Status Onset Date Resolution Date Notes Provider Name and Address Organization Details Recorded Time Dysfuncti on of eustachia n tube 16613533 Active 2013 Eustachia n tube dysfuncti on; Note: Date Diagnosed : 02/24/2014 2:07 PM (381.81) Not Available [facility] 4 02:12:51 Mixed conductiv e and sensorine ural hearing loss, bilateral 565460915 Active 2013 Mixed HL, bilateral ; Note: Date Diagnosed : 02/24/2014 1:34 PM (389.22) Not Available [facility] 4 02:15:53 Impacted cerumen of bilateral ears 64277502690 11221 Active 2014 Impacted cerumen, bilateral ; Note: Date Diagnosed : 5 2:29 PM (H61.23) Not Available [facility] 4 02:14:40 Disorder of left Eustachia n tube 47210690344 84356 Active 2015 Other specified disorders of Eustachia n tube, left ear; Note: Date Diagnosed : 07/06/2015 2:16 PM (H69.82) Not Available [facility] 4 02:14:49 Chronic mycotic otitis externa 398299280 Active 2015 Chronic mycotic otitis externa; Note: Date Diagnosed : 01/30/2016 1:33 PM (380.15) Not Available [facility] 4 02:14:54 Infective otitis externa of left ear 30825019831 01637 Active 2015 Other infective otitis externa, left ear; Note: Date Diagnosed : 02/27/2016 2:38 PM (H60.392) Not Available [facility] 4 02:14:54 Impacted cerumen in right ear 35517313552 20078 Active 2016 Impacted cerumen, right ear; Note: Date Diagnosed : 10/14/2016 1:43 PM (H61.21) Not Available [facility] 4 02:13:33 Otorrhea of left ear 54364910923 38547 Active 2018 Otorrhea, left ear; Note: Date Diagnosed : 05/04/2018 1:29 PM (H92.12) Otorrhe a, left ear; Note: Date Diagnosed : 5 1:44 PM (H92.12) ; Start Date : 5 Not Available [facility] 4 02:14:13 Sensorine ural hearing loss of bilateral ears 155098981 Active 2019 Sensorine ural hearing loss, bilateral ; Note: Date Diagnosed : 05/17/2019 1:53 PM (H90.3) Not Available [facility] 4 02:15:19 Itching of skin 258095793 Active 2022 Other pruritus; Note: Date Diagnosed : 11/11/2022 3:09 PM (L29.8) Not Available [facility] 4 02:14:26 Problem Notes None recorded. Procedures Surgical History Date Name Laterality Status Provider Name and Address Organization Details Recorded Time 5 Cerumen removal without microscope bilat completed HUMPHREY ZHANG MD [address] [place] [address], [phone], [facility] - [facility] 11/14/2024 13:45:07 5 Cerumen removal without microscope bilat completed Jemima Terrazas [place] - [facility] 06/10/2024 14:29:07 hernia repair completed Isa Lora [place] - [facility] 11/14/2024 13:25:07 Imaging Results None recorded. [...] eye drops 03/07 completed Medicati on ID: [id number] D uration Value: 10 Prescri bed By Name: BERNIE [place] Name: ofloxaci n Send Method: E-Prescr ibed Sub s Allowed: subs OK Speci al Instruct ion: apply 5 drops to left ear BID x 10 days Med icationG enericNa me: ofloxaci n Not Available Not Available Not Available simvastat in 40 mg tablet 07/12 completed Medicati on ID: [id number] Du ration Value: 90 Brand Name: simvasta [...] a day 03/07 completed Medicati on ID: [id number] D uration Value: 14 Brand Name: ofloxaci n Send Method: E-Prescr ibed Sub s Allowed: subs OK Medic ationGen ericName : ofloxaci n Not Available Not Available Not Available triamcino lone acetonide 0.025 % topical cream 03/07 completed Medicati on ID: [id number] B rand Name: triamcin olone acetonid e Send Method: E-Prescr ibed Sub s Allowed: subs OK Medic ationGen ericName : triamcin olone acetonid e Not Available Not Available Not Available tamsulosi n 0.4 mg capsule 03/07 completed Medicati on ID: [id number] B rand Name: tamsulos in Send Method: [...] mg tablet 07/12 completed Medicati on ID: [id number] D uration Value: 90 Brand Name: lisinopr [...] mg tablet 08/07 completed Medicati on ID: [id number] Du ration Value: 30 Reason: () Brand Name: naproxen Send Method: E-Prescr ibed Sub s Allowed: subs OK Speci al Instruct ion: TAKE 1 TABLET BY MOUTH TWICE A DAY AFTER MEALS Me dication GenericN nakul: naproxen Not Available Not Available Not Available esomepraz ole magnesium 20 mg capsule,d elayed release 03/07 completed Medicati on ID: [id number] B rand Name: esomepra zolzohaib gonzalezu m Send Method: E-Prescr ibed Sub s Allowed: subs OK Medic ationGen ericName : esomepra zole magnesiu m Not Available Not Available Not Available TobraDex 0.3 %-0.1 % eye drops,[place] pension 4 drop 03/07 completed Medicati on ID: [id number] D uration Value: 7 Prescri bed By [...] 4 drop 03/07 completed Medicati on ID: [id number] D uration Value: 14 Prescri bed By Name: BERNIE Garcia nd Name: Ciprodex Send Method: E-Prescr ibed Sub s Allowed: subs OK Medic ationGen ericName : Ciprodex Not Available Not Available Not Available rosuvasta tin 20 mg tablet TAKE 1 TABLET DAILY active Not Available Not Available No t Available hydrochlo rothiazid e 12.5 mg tablet 07/08 completed Medicati on ID: [id number] Re ason: () Brand Name: hydrochl orothiaz karon Send Method: E-Prescr ibed Sub s Allowed: subs OK Medic ationGen ericName : hydrochl orothiaz karon Not Available Not Available Not Available aspirin 81 mg capsule Take 1 capsule every day by oral route. active Not Available Not Available No t Available Vitals None Recorded Social History None recorded. Functional Status None recorded. Mental Status None recorded. Family History Nothing Reported. Medical History Condition Response Cancer Y High Cholesterol Y Allergies/Hayfever Y GERD/Reflux Y Past Encounters Encounter ID Performer Location Encounter Start Date Encounter Closed Date Diagnosis/Indication Diagnosis SNOMED-CT Code Diagnosis ICD10 Code Diagnosis IMO Codes Diagnosis Note [id number] HUMPHREY ZHANG MD [facility] on [address] [place] [phone] 11/14/2024 13:21:57 11/14/2024 13:48:15 Impacted cerumen of bilateral ears [id number] 309974 H61.23 Dysfunctio n of eustachian tube 30461735 H69.80 Sensorineu ral hearing loss of bilateral ears 227744421 H90.3 Continue with full-time use of amplificat ion technology Health Concerns Section Related Observation LastModified by Organization Detai ls LastModified Time None Recorded Concern Status LastModified by Organization Details LastModified Time None Recorded Payers Encounter Date Sequence Insurance Name Policy Number Policy Marcos Covered Member ID Marcos Member ID Guarantor Name 11/14/2024 2 [facility] IN[facility]MN[facility]AN (INDEMNITY) [id number] Mark Allen [id number] Mark Allen 11/14/2024 1 MEDICARE B-[place]: [employer] Mark Allen [id number] Mark Allen Notes Date Note Type Note Provider Name and Address Organization Details Recorded Time 11/14/2024 text/html 89-year-old male with history of eustachian tube dysfunction, status post placement of left T-tube back in 2014. He has sensorineural hearing loss requiring binaural amplification. Comes in periodically for ear cleaning. He has had difficulties with intermittent fungal dermatitis and otorrhea in the past. Currently asymptomatic. Uses OTC cortisone intermittently for itching. HUMPHREY ZHANG MD [address] [place] [address], [place], [phone], [facility] - [facility] 11/14/2024 13:50:15
== END 2025-02-10 15:05 | disposition home or self-care (01) ==
LOC: HO.HAP 15:04
PROVIDERS: Visit Provider Family Medicine
DX: H69.92 Unspecified Eustachian tube disorder, left ear (principal)
CPT/HCPCS: V5266